=== PATIENT | male | born 1965 | race Caucasian/White ===

== ENCOUNTER → 2018-05-03 11:11 | Outpatient (CLI) | payer BC, SELFPAY ==
[2018-05-03 13:12] LABS: AST(SGOT) 39 U/L (15-37); Alanine Aminotransfer ALT/SGPT 66 U/L (16-61); Albumin, Serum 4.3 g/dL (3.2-5.0); Alkaline Phosphatase 64 U/L (45-117); Bilirubin, Direct 0.13 mg/dL (0.00-0.30); Cholesterol 188 mg/dL (200); Globulin 3.4 g/dL (2.2-4.2); High Density Lipoprotein 44 mg/dL; Protein, Total 7.7 g/dL (6.4-8.2); Triglycerides 252 mg/dL; Very Low Density Lipoprotein 50 mg/dL (5-40)
== END ==
PROVIDERS: Family Provider Family Medicine Geriatric Medicine; PCP Family Medicine Geriatric Medicine; Visit Provider Internal Medicine Cardiovascular Disease
DX: E78.5 Hyperlipidemia, unspecified (principal)
CPT/HCPCS: 36415; 80061; 80076

== ENCOUNTER → 2019-05-14 | Outpatient (CLI) | payer BC, SELFPAY ==
[2019-05-14 09:30] VITALS: BMI 27.9
[2019-05-14 12:22] LABS: AST(SGOT) 27 U/L (15-37); Alanine Aminotransfer ALT/SGPT 52 U/L (16-61); Albumin, Serum 4.4 g/dL (3.2-5.0); Alkaline Phosphatase 72 U/L (45-117); Bilirubin, Direct 0.22 mg/dL (0.00-0.30); Cholesterol 182 mg/dL (200); Globulin 3.5 g/dL (2.2-4.2); High Density Lipoprotein 49 mg/dL; Protein, Total 7.9 g/dL (6.4-8.2); Triglycerides 264 mg/dL; Very Low Density Lipoprotein 53 mg/dL (5-40)
== END | disposition home or self-care (01) ==
LOC: LAB 11:10
PROVIDERS: Family Provider Family Medicine Geriatric Medicine; PCP Family Medicine Geriatric Medicine; Referring Provider Internal Medicine Cardiovascular Disease; Visit Provider Internal Medicine Cardiovascular Disease
DX: E78.5 Hyperlipidemia, unspecified (principal)
CPT/HCPCS: 36415; 80061; 80076

== ENCOUNTER → 2019-06-04 14:23 | Outpatient (CLI) | payer SELFPAY ==
[2019-05-14 09:30] VITALS: BMI 27.9
[2019-05-23 09:48] VITALS: BMI 27.9
--- NOTE | 2019-06-04 14:30 | CT_ITS ---
STUDY: CARDIAC CALCIUM SCORING - CT CHEST REASON FOR EXAM: Male, 54 years old. Hypertension RADIATION DOSAGE (If Supplied By Facility): CTDIvol = ( 12.19 ) mGy, DLP = ( 195.04 ) mGycm TECHNIQUE: Axial non-enhanced images were acquired through the heart for the sole purpose of measuring coronary artery calcium. Individualized dose optimization techniques were used for this CT. COMPARISON: None. FINDINGS: Please see the patient's medical record for a personalized calcium score. There is a calcified granuloma noted in the left lower lobe. The visualized lungs are otherwise clear. The visualized soft tissues are within normal limits. CT/Limited Chest CT w/CCTA IMPRESSION: Please see the patient's medical record for a personalized calcium score. Please go to: [email or web address] , for a description of the calculator. Electronically Signed: Jorden Forbes, at 16:17 EDT Tel , Service support ,
[2019-06-04 14:37] VITALS: BP 144/86; PULSE 66; RESP 16; O2SAT 96; BMI 27.2
--- NOTE | 2019-06-17 09:07 | CA.SCORE ---
Calcium Scoring Date of Study:: 06/17/19 Coronary Calcium Scoring: High-resolution Computed Tomographic imaging of the chest was performed on [06/04/2019], with particular attention paid to the coronary arteries. Images from the examination were analyzed for the presence and extent of coronary artery calcification , using coronary calcium quantification software. The patient tolerated the procedure well and there were no complications. The results of the coronary calcification analysis are provided below. - Findings Left Main (LM): 16 Left Anterior Descending (LAD): 0 Left Circumflex (LCX): 2 Right Coronary Artery (RCA): 0 Total Agatston Score: 18 Percentile Rankin Calcium Scoring Interpretation: 0 No identifiable atherosclerotic plaque. Very low cardiovascular disease risk. <5% chance of presence coronary artery disease A Negative Examination 1-10 Minimal Plaque burden. Significant coronary artery disease very unlikely. 11-100 Mild plaque burden. Likely mild or minimal coronary atherosclerosis. 101-400 Moderate plaque burden Moderate non-obstructive coronary artery disease highly likely. Over 400 Extensive plaque burden. High likelihood of at least one significant coronary stenosis (>50% diameter) Calcium Score: >400 High likelihood of at least one significant coronary stenosis - The above suggests mild coronary artery disease. A full evaluation of cardiac risk should include assessment of all conventional risk factors and the scores and percentile rankings reported herein should be evaluated in this context.
== END ==
PROVIDERS: Family Provider Family Medicine Geriatric Medicine; PCP Family Medicine Geriatric Medicine; Referring Provider Internal Medicine Cardiovascular Disease; Visit Provider Internal Medicine Cardiovascular Disease
DX: I10 Essential (primary) hypertension (principal); E78.5 Hyperlipidemia, unspecified
CPT/HCPCS: 75571; 76380

== ENCOUNTER 2019-06-14 08:49 | Day surgery (SDC) | payer BC, SELFPAY ==
--- NOTE | 2019-05-23 06:11 | HP_ITS ---
Intake Vital Signs 05/23/19 Body Mass Index (BMI) 27.9 05/23/19 Height 5 ft 10 in 05/23/19 Weight: 197 lb 05/23/19 Body Mass Index (BMI) 28.3 05/23/19 Blood Pressure 146/87 H 05/23/19 Blood Pressure Location Rt brachial 05/23/19 Respiratory Rate 18 05/23/19 Pulse Rate 76 05/23/19 Pulse Source Monitor 05/23/19 Temperature 98.3 F 05/23/19 Pulse Ox 98 05/23/19 Oxygen Delivery Method room air Intake Visit Reasons: Umbilical Hernia Chief Complaint: Follow up Commercial Credit Reviewer Required: No Is patient in pain?: No Allergies codeine Adverse Reaction (Intermediate, Verified 05/23/19 09:47) Nausea Medications hydrochlorothiazide 25 mg tablet 25 mg PO QAM #90 tab 05/14/19 [Rx Confirmed 05/23/19] losartan 100 mg tablet 100 mg PO DAILY #90 tab 05/14/19 [Rx Confirmed 05/23/19] rosuvastatin 10 mg tablet 10 mg PO DAILY #90 tab 05/14/19 [Rx Confirmed 05/23/19] PFSH Medical History Essential (primary) hypertension (Chronic) Family history of ischemic heart disease (Chronic) Hyperlipidemia (Chronic) Surgical History History of tonsillectomy (Chronic) History of vasectomy (Chronic) Family History (Updated 05/23/19 @ 09:48 by Lesly Villela) Father CAD (coronary artery disease) S/P CABG x 6 Asthma Hypertension High cholesterol Mother Hypertension CVA (cerebral vascular accident), Onset Age: 69 High cholesterol Brother Hypertension Grandfather , Age 72 CAD (coronary artery disease) Myocardial infarction Social History (Updated 05/23/19 @ 09:45 by Lesly Villela) Smoking Status: Never smoker alcohol intake: current substance use type: does not use HPI HPI HPI: BRYAN BRADLEY, is a 54 M who presents to the office today for HPI HPI Surgical H&P: Yes HPI: BRYAN BRADLEY, is a 54 M who presents to the office today for surgical consultation regarding a slowly progressing umbilical hernia. 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 Very pleasant 54-year-old gentleman. For several years he has noted an umbilical hernia. It usually is quite comfortable. Occasionally with a vigorous sneeze it will be briefly uncomfortable. He has never had to reduce any tissue. He remains physically active. He denies any acute medical illnesses other than hypertension and hyperlipidemia. During our discussion it became apparent that he previously was scheduled to have a screening colonoscopy however due to scheduling problems that had to be canceled and he has not had an opportunity to reschedule. He denies bright red blood per rectum or melena. There is been no acute weight change. ROS General General: No weight change, appetite, fatigue, colon cancer, breast cancer or weakness HEENT HEENT: No difficulty swallowing, eye injury, eye surgery, swollen glands or hoarseness Endo Endocrine: No thyroid disease, diabetes mellitus, thyroid cancer, Hair loss, heat intolerance or cold intolerance Skin Skin: No rash or changing moles Breast Breast: No left breast lump, right breast lump, nipple discharge, breast pain, abnormal mammogram, abnormal US or breast enlargement Musc Musculoskeletal: No back problems, arthritis, rheumatoid arthritis, gout or joint pain Cardio Cardiovascular: Yes high blood pressure; no murmur, pacemaker, heart disease, atrial fibrillation, heart attack, heart stent, palpitations, shortness of breat with exertion or chest pain Psych Psychiatric: No depression, anxiety or hearing voices Resp Respiratory: No shortness of breath, No sleep apnea, No cough, No COPD, No asthma, No emphysema, No wheezing Gastro Gastrointestinal: No abdominal pain, No nausea or vomiting, No diarrhea, No constipation, No blood in stool, No acid reflux, No hemorrhoids, No ulcers, No gallbladder problem, No black,tarry stools Gorge Hematologic: No blood thinners, No blood disorders, No bleeding, No anemia, No blood clots Neuro Neurologic: No system reviewed and no additional complaints, except as docu, No as per HPI, No abnormal walking, No abnormal hearing, No abnormal movements, No abnormal speech, No behavioral changes, No burning sensations, No confusion, No seizure-like activity, No unsteadiness, No dizziness, No localized weakness, No frequent falls, No headache(s), No lack of coordination, No loss of vision, No memory loss, No numbness, No other visual disturbances, No radiating pain, No restless legs, No sensory deficit, No fainting, No tingling, No tremor(s), No weakness, No other Exam Const General: cooperative, healthy appearing, comfortable, no acute distress Nutritional Appearance: average body habitus Orientation: alert, awake, oriented x3 HENMT Head: normal to inspection Chest Breast Palpation: No nipple discharge Resp Effort & Inspection: normal respiratory effort Auscultation: clear to auscultation bilaterally Cardio Rate: regular rate Rhythm: regular rhythm Heart Sounds: no murmurs GI Palpation: soft, no hepatosplenomegaly Auscultation: normal bowel sounds Other: Small umbilical hernia, nontender, reducible, suggest preperitoneal fatty tissue Musc Cervical Spine: normal cervical lordosis Neuro Cognition: normal cognition Extrem General: no calf tenderness bilaterally Psych Affect: normal affect Assessment & Plan Problems 1. Umbilical hernia without obstruction or gangrene K42.9 2. Screening for intestinal cancer Z12.10 Plan On my clinical evaluation I believe that he has a relatively small umbilical hernia. It very infrequently is symptomatic. There is no bowel involvement. Small amount of reducible preperitoneal fatty tissue. I advised a conservative nonoperative approach at this setting. He has had an opportunity to ask and have questions answered. We did discussed screening colonoscopy however. I did advise him to pursue a colonoscopy with possible biopsy or polypectomy as indicated. He has had an opportunity to ask and have questions answered and he would like to proceed. We will schedule appropriately. The patient notes that on an annual basis basis he sees Dr. Harsh Maher regarding lipid and blood pressure management. He states that he is not recently seen by his primary care physician and I did advise that he seek routine follow-up with Dr. Weems as well. I very much appreciate the kind opportunity of assisting with his surgical care. CC: Dr. Maher and Dr. Dank Nguyen M.D., F.A.C.S. Orders Orders: Colonoscopy Today Z12.11 Coding Level of Care Code Off vis,new,level 3 Diagnoses Umbilical hernia without obstruction or gangrene K42.9 Screening for intestinal cancer Z12.10 05/24/19 0628 <Electronically signed by Bryan chaparro MD> Date _ Bryan Nguyen MD I have re-examined the patient. There are no clinical changes since date of exam.
[2019-05-23 09:48] VITALS: BMI 27.9
[2019-06-04 14:37] VITALS: BMI 27.2
[2019-06-14] VITALS (10 sets, daily range): BP systolic 99–175; BP diastolic 83–97; PULSE 80–98; RESP 16; TEMP 36.1–36.8; O2SAT 92–100; BMI 27.3
--- NOTE | 2019-06-14 10:00 | COLBX_PTH ---
PATIENT: BRYAN BRADLEY LOC: EN U#:[id number] AGE/SX: 54/M ROOM: RE06/14/[address]: Dr. Bryan Nguyen MD : 1965 BED: DIS: 06/14/2019 SPEC #: [id number] RECD: 06/14/19 11:28 STATUS: OLEGARIO NEERAJ #: [id number] ROSINA: 06/14/19 10:[address]: Bryan Nguyen DEPT: SURGICAL PATHOLOGY RECD BY: Tenzin Michelle ENTERED: 06/14/19 12:43 SP TYPE: COLON BX OTHR DR: Dr. Gabe Weems MD Tissues: A - Ascending colon B - Ascending colon C - Rectum, NOS Procedures: Surgery Specimen Level IV HEADER OPERATION: Colonoscopy (MOD) PRE-OP DIAGNOSIS: Screening TISSUE SUBMITTED: A - Biopsy of proximal ascending polyp and polypectomy, B - Biopsy of proximal ascending polyp #2, C - Biopsy of proximal rectum polyp MICROSCOPIC DIAGNOSIS A. Proximal ascending colon polyp, polypectomy: Consistent with fragments of inflammatory polyp. B. Proximal ascending colon polyp #2, biopsy: Fragments of tubular adenoma. C. Proximal rectum polyp, biopsy: Fragments of hyperplastic polyp. DEON:suresh 06/17/19 MICROSCOPIC DESCRIPTION Slides are reviewed. GROSS DESCRIPTION A - Received in fixative is one container labeled with the patient's name and designated biopsy of proximal ascending polyp. The specimen consists of multiple irregular fragments of light cook soft tissue that in aggregate measure 0.5 x 0.5 x 0.1 cm. The specimen is totally submitted in one cassette. B - Received in fixative is one container labeled with the patient's name and designated biopsy of proximal ascending polyp #2. The specimen consists of multiple irregular fragments of light cook soft tissue that in aggregate measure 0.5 x 0.4 x 0.1 cm. The specimen is totally submitted in one cassette. C - Received in fixative is one container labeled with the patient's name and designated biopsy of proximal rectum polyp. The specimen consists of multiple irregular fragments of light cook soft tissue that in aggregate measure 0.6 x 0.3 x 0.1 cm. The specimen is totally submitted in one cassette. / DEON:suresh 06/14/19 TC:1 CPT: 92320 x3
--- NOTE | 2019-06-14 10:27 | OP.ENDO_ITS ---
06/14/2019 Harsh Maher [address] [place] [address] Re : Colonoscopy procedure for Jean Carlos Robledo Dear Dr. Maher This procedure was performed on Friday, June 14, 2019. My impressions and recommendations are as follows: Impressions : - Diverticulosis in the sigmoid colon. - One 5 mm polyp in the proximal ascending colon, removed with a cold snare. Resected and retrieved. - One 4 mm polyp in the proximal ascending colon, removed with a cold biopsy forceps. Resected and retrieved. - One 4 mm polyp in the rectum, removed with a cold biopsy forceps. Resected and retrieved. Recommendations : - Repeat colonoscopy in 5 years for surveillance based on pathology results. - Telephone my office for pathology results in 1 week. - Discharge patient to home. - Resume previous diet. - Continue present medications. My findings are described in the full procedure note, which is enclosed. If I can be of further assistance, please feel free to contact me at Doctor phone number(s): Work: . Sincerely, Jean Carlos Nguyen MD 06/14/2019 10:26:55 AM This report has been signed electronically.
== END 2019-06-14 11:25 | disposition home or self-care (01) ==
LOC: EN 08:50 → AC 08:51
PROVIDERS: Family Provider Family Medicine Geriatric Medicine; PCP Family Medicine Geriatric Medicine; Referring Provider Family Medicine Geriatric Medicine; Visit Provider Surgery
PROC: 0DJD8ZZ Inspection of Lower Intestinal Tract, Via Natural or Artificial Opening Endoscopic (ICD-10-PCS; CPT 45378; principal; 2019-06-14 09:55)
DX: Z12.11 Encounter for screening for malignant neoplasm of colon (principal); D12.2 Benign neoplasm of ascending colon; K51.40 Inflammatory polyps of colon without complications; K62.1 Rectal polyp; K57.30 Diverticulosis of large intestine without perforation or abscess without bleeding; K42.9 Umbilical hernia without obstruction or gangrene; I10 Essential (primary) hypertension; E78.5 Hyperlipidemia, unspecified; Z79.899 Other long term (current) drug therapy
CPT/HCPCS: 45380; 45385; 88305; 99152; 99153; J7120

== ENCOUNTER 2022-01-25 07:41 | Outpatient (CLI) | payer BC, SELFPAY ==
--- NOTE | 2022-01-25 07:51 | US_ITS ---
EXAM: US SOFT TISSUES HEAD AND NECK, THYROID CLINICAL INDICATION: THYROID NODULE TECHNIQUE: Greyscale and color doppler imaging was performed of the thyroid gland. This report was created using [employer] report generation technology. COMPARISON: None. FINDINGS: The right thyroid lobe measures 5.4 x 2.4 x 1.6 cm while left lower lobe measures 4.8 x 1.7 x 1.5 cm. The isthmus measures 3 mm. No nodules are seen on the left side. On the right side, there is a 3 mm nodule which is cystic and likely benign. US/Thyroid IMPRESSION: Likely benign 3 mm cystic nodule involving the right thyroid lobe. No other significant abnormalities. Electronically Signed: Ernesto Alvarez MD at 16:52 EDT ,
== END 2022-01-25 23:59 | disposition home or self-care (01) ==
LOC: US 07:47
PROVIDERS: PCP Internal Medicine; Referring Provider Internal Medicine; Visit Provider Internal Medicine
DX: E04.1 Nontoxic single thyroid nodule (principal)
CPT/HCPCS: 76536

== ENCOUNTER → 2022-03-25 | Outpatient (CLI) | payer BC, SELFPAY ==
--- NOTE | 2022-03-25 08:53 | RDU_ITS ---
Reason For Study: HTN Right Renal Artery Left Renal Artery Right renal artery ostium 72.9/27.2 Left renal artery ostium 87.5/21.7 RSV/EDV. PSV/EDV. Right renal artery proximal Left renal artery proximal PSV/EDV 105.7/25.4 PSV/EDV. 131.3/40.0 . Right renal artery mid 135/40.0 Left renal artery mid 155.6/48.1 PSV/EDV. PSV/EDV . Right renal artery distal 96.3/32.7 Left renal artery distal 118.9/33.4 PSV/EDV. PSV/EDV. Right Renal Parenchyma Left Renal Parenchyma Upper Pole Medula 36.1/10.9 Left upper pole medulla 53.0/19.3 PSV/EDV. PSV/EDV . Right upper pole medulla EDR .3 . Left upper pole medulla EDR .36 . Right upper pole medulla R.I. .7 . Left upper pole medulla R.I. .64 . Upper Reji Cortx 31.7/13.1 PSV/EDV. UP Cortex 24.5/8.9 PSV/EDV. Right upper pole cortex EDR .41 . Left upper pole cortex EDR .37 . Right upper pole cortex R.I. .59 . Left upper pole cortex R.I. .63 . Right lower Pole medulla 39.4/17.4 Left lower Pole medulla 27.1/8.9 PSV/EDV . PSV/EDV . Right lower pole medulla EDR .44 . Left lower pole medulla EDR .33 . Right lower pole medulla R.I. .56 . Left lower pole medulla R.I. .67 . Lower Pole Cortex 19.6/7.6 PSV/EDV. Lower Pole Cortx 31.0/10.2 PSV/EDV. Right lower pole cortex EDR .39 . Left lower pole cortex EDR .33 . Right lower pole cortex R.I. .61 . Left lower pole cortex R.I. .67 . Right Renal Hilar Left Renal Hilar Right Hilar avg 58.0/21.8 PSV/EDV. LT Hilar avg 43.9/15.4 PSV/EDV . Right hilar acceleration time 50 Left hilar acceleration time 50 m/sec. m/sec. Right Renal Dimensions Left Renal Dimensions Right kidney size 11.67 cm . Left kidney size 11.6 cm . Right cortical dimension 1.85 cm . Left cortical dimension 1.7 cm . Aorta Proximal abdominal aorta 1.42 x 1.45 cm . Proximal abdominal aorta peak systolic velocity is 106.3 cm/sec . Distal abdominal aorta 1.4 x 1.36 cm . Distal abdominal aorta peak systolic velocity is 97.2 cm/sec . Normal renal veins bilat. VL/Renal Artery Duplex Ultrasound Interpretation Summary Dimensions of the intra-abdominal aorta appear normal, without evidence of aneu rysmal dilatation. Renal artery velocities are bilaterally normal. Acceleration times are normal b ilaterally. There is no evidence of hemodynamically significant renal artery stenosis on either side . Renovascular resistance appears to be bilaterally normal . The right cortical dimension is i ncreased. The left cortical dimension is increased. Kidneys appear normal in size bilaterally. Ordering Physician: Carolin Feldman Performed By: Giuseppe Rojas RVT
== END | disposition home or self-care (01) ==
LOC: CVS 08:52
PROVIDERS: PCP Internal Medicine; Referring Provider Internal Medicine; Visit Provider Internal Medicine
DX: I10 Essential (primary) hypertension (principal); E04.1 Nontoxic single thyroid nodule
CPT/HCPCS: 93975

== ENCOUNTER → 2022-09-19 | Outpatient (CLI) | payer BC, SELFPAY ==
--- NOTE | 2022-09-19 12:48 | ECHOD_ITS ---
Procedure This was a 2D Doppler, Color Flow transthoracic echocardiogram. Exam performed in department. Left Ventricle Normal LV size. Left ventricular systolic function is normal. The estimated ejection fraction is 60 %. No regional wall motion abnormalities noted. Right Ventricle Normal RV size. Normal systolic function. Atria Normal left atrium. Normal right atrium. Mitral Valve Normal mitral valve. Tricuspid Valve Normal tricuspid valve. Aortic Valve Trisinus/trileaflet aortic valve. Pulmonic Valve Normal pulmonic valve. Great Vessels Normal aortic root. The pulmonary artery is normal size. Normal inferior vena cava. Pericardium/Pleural No pericardial effusion. MMode/2D Measurements & Calculations LVIDd: 4.7 cm IVSd: 0.91 cm Ao root diam: 3.2 cm LVIDs: 3.2 cm LVPWd: 1.0 cm LA dimension: 3.8 cm RVDd: 3.6 cm FS: 31.1 % LAV(MOD-bp): 48.3 ml LVAd ap4: 33.5 cm2 LVAd ap2: 30.8 cm2 LAV(MOD-bp) Indexed: 23.7 ml/m2 LVLd ap4: 9.1 cm LVLd ap2: 8.8 cm LAV(MOD-sp2): 44.2 ml EDV(MOD-sp4): 103.3 ml EDV(MOD-sp2): 89.4 ml LAV(MOD-sp4): 45.5 ml EDV(sp4-el): 105.1 ml EDV(sp2-el): 92.0 ml LVAs ap4: 16.4 cm2 LVAs ap2: 17.7 cm2 LVLs ap4: 7.5 cm LVLs ap2: 7.5 cm ESV(MOD-sp4): 31.0 ml ESV(MOD-sp2): 38.1 ml ESV(sp4-el): 30.5 ml ESV(sp2-el): 35.3 ml EF(MOD-sp4): 70.0 % EF(MOD-sp2): 57.4 % EF(sp4-el): 71.0 % SV(MOD-sp4): 72.3 ml SV(MOD-sp2): 51.3 ml SV(sp4-el): 74.6 ml LA A4 area: 15.6 cm2 RA A4 area: 12.5 cm2 Time Measurements MV dec time: 0.20 sec Doppler Measurements & Calculations MV E max brenden: 50.8 cm/sec Lat Peak E' Brenden: 10.5 cm/sec Med Peak E' Brenden: 8.5 cm/sec MV A max brenden: 58.2 cm/sec E/E' lat: 4.8 E/E' med: 5.9 MV E/A: 0.87 Ao V2 max: 127.4 cm/sec LV V1 max: 97.3 cm/sec PA V2 max: 134.9 cm/sec Ao max P.5 mmHg LV V1 max P.8 mmHg Ao V2 mean: 89.6 cm/sec LV V1 mean P.7 mmHg Ao mean P.5 mmHg LV V1 mean: 61.3 cm/sec Ao V2 VTI: 23.8 cm LV V1 VTI: 16.7 cm ECHO/Echo Complete Interpretation Summary Normal LV size. Left ventricular systolic function is normal. The estimated ejection fraction is 60 %. Structurally normal valves. Ordering Physician: Harsh Maher Referring Physician: Harsh Maher Performed By:
== END | disposition home or self-care (01) ==
LOC: CVS 12:48
PROVIDERS: PCP Internal Medicine; Referring Provider Internal Medicine Cardiovascular Disease; Visit Provider Internal Medicine Cardiovascular Disease
DX: I10 Essential (primary) hypertension (principal)
CPT/HCPCS: 93306

== ENCOUNTER → 2023-06-14 | Outpatient (CLI) | payer BC, SELFPAY ==
--- NOTE | 2023-06-14 16:42 | US_ITS ---
STUDY: RENAL ULTRASOUND - COMPLETE REASON FOR EXAM: Male, 58 years old. MICROSCOPIC HEMATURIA TECHNIQUE: Ultrasound evaluation of the kidneys was performed with real-time and static shetty-scale imaging. COMPARISON: None. FINDINGS: RIGHT KIDNEY: Normal location of the right kidney, which is normal in size. The right kidney measures 12.4 cm x 4.8 cm x 6 cm. There is a normal cortex of the right kidney. The renal cortex measures 1.8 cm. There is no right renal mass or cyst. There are no right renal calculi. There is no right hydronephrosis. DISTAL RIGHT URETER: There is non-visualization of the distal right ureter. There is no demonstrated right ureterovesical junction calculus. There is a visualized right ureteral jet. LEFT KIDNEY: Normal location of the left kidney, which is normal in size. The left kidney measures 11.7 cm x 5.6 cm x 6.4 cm. There is a normal cortex of the left kidney. The renal cortex measures 2.1 cm. There is no left renal mass or cyst. There are no left renal calculi. There is no left hydronephrosis. DISTAL LEFT URETER: There is non-visualization of the distal left ureter. There is no demonstrated left ureterovesical junction calculus. There is a visualized left ureteral jet. BLADDER: The distended urinary bladder has a volume of 266 ml. The empty urinary bladder has a volume of 5.8 ml. There is a normal wall thickness of the distended urinary bladder. There is no demonstrated mass within the urinary bladder. There are no demonstrated bladder calculi. US/Kidney and Bladder IMPRESSION: Normal ultrasound of the kidneys and urinary bladder. Electronically Signed: Homer Russo MD at 11:03 EDT ,
== END | disposition home or self-care (01) ==
LOC: US 16:40
PROVIDERS: PCP Internal Medicine; Referring Provider Internal Medicine; Visit Provider Internal Medicine
DX: R31.29 Other microscopic hematuria (principal)
CPT/HCPCS: 76770

== ENCOUNTER → 2023-07-13 | Outpatient (CLI) | payer BC, SELFPAY | END | disposition home or self-care (01) | PROVIDERS: PCP Internal Medicine; Referring Provider Internal Medicine; Visit Provider Internal Medicine | DX: R06.81 Apnea, not elsewhere classified (principal); I10 Essential (primary) hypertension; R06.83 Snoring | CPT/HCPCS: 95810 ==

== ENCOUNTER → 2023-08-30 | Outpatient (CLI) | payer BC, SELFPAY ==
[2023-08-30] MEDS: Zolpidem Tartrate 5 MG Tablet PO (23:53)
== END | disposition home or self-care (01) ==
LOC: SL 20:23
PROVIDERS: PCP Internal Medicine; Referring Provider Nurse Practitioner Acute Care; Visit Provider Nurse Practitioner Acute Care
DX: G47.33 Obstructive sleep apnea (adult) (pediatric) (principal)
CPT/HCPCS: 95811

== ENCOUNTER → 2023-10-09 | Outpatient (CLI) | payer BC, SELFPAY | END | disposition home or self-care (01) | LOC: SL 13:29 | PROVIDERS: PCP Internal Medicine; Visit Provider Nurse Practitioner Acute Care | DX: R69 Illness, unspecified (principal) ==

== ENCOUNTER → 2023-10-13 | Outpatient (CLI) | payer BC, SELFPAY ==
--- NOTE | 2023-10-13 12:24 | US_ITS ---
STUDY: THYROID ULTRASOUND REASON FOR EXAM: Male, 58 years old. thyroid nodule TECHNIQUE: Ultrasound evaluation of the thyroid was performed with real-time and static adams-scale imaging. COMPARISON: January 25, 2022 FINDINGS: RIGHT LOBE: The right lobe of the thyroid gland measures 5 x 1.9 x 1.7 cm. There is a homogeneous echotexture. There is no demonstrable solid cystic or complex nodule. LEFT LOBE: The left lobe of the thyroid gland measures 4.2 x 1.6 x 1.4 cm. There is a homogeneous echotexture. There are no demonstrated solid, cystic or complex lesions. ISTHMUS: The isthmus measures 3 mm . The regional lymph nodes are normal. Previously noted tiny cystic lesion in the right lobe not noted on current study US/Thyroid IMPRESSION: Nonvisualization of previously noted tiny cystic nodule in the right lower. Otherwise no significant change Electronically Signed: Jules Shukla MD at 16:53 EST ,
== END | disposition home or self-care (01) ==
LOC: US 12:24
PROVIDERS: PCP Internal Medicine; Referring Provider Internal Medicine; Visit Provider Internal Medicine
DX: E04.1 Nontoxic single thyroid nodule (principal)
CPT/HCPCS: 76536

== ENCOUNTER → 2023-11-14 | Outpatient (CLI) | payer BC, SELFPAY ==
--- OUTSIDE RECORDS SUMMARY | 2023-11-14 12:19 | XMS RPT_ITS | CCD ---
Author Name Unknown Address [address] [place] [address] Organization [facility] Care Team Providers Care Lunch Wagon Operator Name Role Phone Fast DO, Carolin A Unavailable Kyra Blanco CMA Unavailable Unavailable Fast DO, Carolin Shirley Unavailable Anibal Núñez LPN Unavailable Unavailable Unavailable Unavailable Fast Carolin BAHENA Attending Unavailable Fast Carolin BAHENA Referring Unavailable Carolin Feldman DO Consulting Unavailable Dr. Carolin Feldman Attending Unavailable FastDr. Carolin Primary Care Unavailable Allergies Allergy Classification Reported Allergen(s) Allergy Type Date of Onset Reaction(s) Facility (12 sources) Codeine/Codeine Derivatives; Translations: [Codeine/Codein e Derivatives] Allergy to substance (finding) [facility] Work Phone: Medications Completed/Discontinued Medications Medication Drug Class(es) Dates Sig (Normalized) Sig (Original) amLODIPine 5 mg oral tablet (12 sources) Dihydropyridine Calcium Channel Kenneth Start: 01-18-2022 End: 07-22-2022 take 1 tablet by mouth once daily amLODIPine Besylate 5 MG Oral Tablet 1 (one) Tablet qd for 0 days Quantity: 30 {Tablet} Refills: 4 Ordered: 22-Jul-2022 Kyra Blanco CMA Start : 18-Jan-2022 End : 22-Jul-2022 Inactive Problems Active Problems Problem Classification Problem Date Documented Da te Episodic/Chronic Abdominal hernia (20 sources) Umbilical hernia; Translations: [Umbilical hernia] 01-18-2022 Episodic Past or Other Problems Problem Classification Problem Date Documented Da te Episodic/Chronic Unclassified (4 sources) BMI 26.0-26.9,adult Unclassified (4 sources) Nonsmoker Unclassified (3 sources) Encounter for screening for malignant neoplasm of prostate (Renamed from Screening for prostate cancer) Unclassified (3 sources) Immunity status testing Unclassified (1 source) Colon polyps Unclassified (1 source) History of histoplasmosis Results Test Name Value Interpretation Reference Range Facil ity Vital Signs Date Time Vital Sign Value Performing Clinician Facility 06-23-2023 10:25-0400 Body height 178.44 cm Kyra Mont[facility]ISSIMO [facility] Comprehensiv e [facility]; [facility] Work Phone: 06-23-2023 10:25-0400 Body mass index (BMI) [Ratio] 26.85 kg/m2 [facility]licious [facility]; [facility] Work Phone: 06-23-2023 10:25-0400 Body surface area Derived from formula 2.04 m2 Kyra EdwardselianeORDISSIMO [facility]; [facility] Work Phone: 06-23-2023 10:25-0400 Body temperature 97.1 [degF] Kyra [email or web address] [facility] Comprehensi ve Internal Medicine; [facility] Work Phone: Encounters Encounter Date Encounter Type Care Provider Facility Start: 06-23-2023 End: 06-23-2023 Office outpatient visit 10 minutes Carolin Fast DO Work Phone: [facility] Start: 06-12-[address] Carolin Nolandi [id number] Start: 06-07-2023 End: 06-09-2023 Patient encounter procedure Carolin Fast DO Work Phone: [facility] Start: 06-07-2023 Review Carolin Fast DO Work Phone: [facility] Start: 05-24-2023 Review Carolin Fast DO Work Phone: [facility] Start: 05-24-2023 End: 06-14-2023 Phone Encounter Carolin Fast DO Work Phone: [facility] Start: 05-12-2023 End: 05-12-2023 Phone Encounter Carolin Fast DO Work Phone: [facility] Start: 07-22-2022 ambulatory Carolin A Fast DO Compreh ensive [facility] Start: 07-22-2022 End: 07-27-2022 Office outpatient visit 25 minutes Carolin Fast DO Work Phone: [facility] Start: 07-12-2022 End: 07-20-2022 Phone Encounter Carolin Fast DO Work Phone: [facility] Start: 05-11-2022 End: 07-11-2022 Office outpatient visit 5 minutes Carolin Fast DO Work Phone: [facility] Start: 01-19-2022 End: 01-19-2022 Phone Encounter Carolin Fast DO Work Phone: [facility] Start: 01-18-2022 End: 01-18-2022 Office outpatient visit 25 minutes Carolin Fast DO Work Phone: [facility] Start: 09-27-2021 End: 09-28-2021 Office outpatient visit 25 minutes Carolin Fast DO Work Phone: [facility] Start: 09-27-2021 End: 09-28-2021 Patient encounter status Carolin A Fast DO Work Phone: [facility]; [facility] Work Phone: [facility] Work Phone: Patient encounter status [facility]; [facility] Work Phone: Patient encounter status [facility]; [facility] Work Phone: Patient encounter status [facility]; [facility] Work Phone: Procedures Date Procedure Procedure Detail Performing Clinician Start: 06-14-2023 End: 06-15-2023 Kidney and Bladder Procedure Note: See Note; NOTES: [facility] Imaging Services [address] [place] [address] Kidney and Bladder MR#: [id number] Acct: [id number] Name: BRYAN BRADLEY Rep #: [id number] : 1965 M 58 From: Homer vyas MD PCP: Dr. Carolin Feldman DO Status: REG CLI Study: Kidney and Bladder Date of Exam: 06/14/23 Exam# [id number] Ordering Dr: Carolin Feldman DO STUDY: RENAL ULTRASOUND - COMPLETE REASON FOR EXAM: Male, 58 years old. MICROSCOPIC HEMATURIA TECHNIQUE: Ultrasound evaluation of the kidneys was performed with real-time and static shetty-scale imaging. COMPARISON: None. FINDINGS: RIGHT KIDNEY: Normal location of the right kidney, which is normal in size. The right kidney measures 12.4 cm x 4.8 cm x 6 cm. There is a normal cortex of the right kidney. The renal cortex measures 1.8 cm. There is no right renal mass or cyst. There are no right renal calculi. There is no right hydronephrosis. DISTAL RIGHT URETER: There is non-visualization of the distal right ureter. There is no demonstrated right ureterovesical junction calculus. There is a visualized right ureteral jet. LEFT KIDNEY: Normal location of the left kidney, which is normal in size. The left kidney measures 11.7 cm x 5.6 cm x 6.4 cm. There is a normal cortex of the left kidney. The renal cortex measures 2.1 cm. There is no left renal mass or cyst. There are no left renal calculi. There is no left hydronephrosis. DISTAL LEFT URETER: There is non-visualization of the distal left ureter. There is no demonstrated left ureterovesical junction calculus. There is a visualized left ureteral jet. BLADDER: The distended urinary bladder has a volume of 266 ml. The empty urinary bladder has a volume of 5.8 ml. There is a normal wall thickness of the distended urinary bladder. There is no demonstrated mass within the urinary bladder. There are no demonstrated bladder calculi. US/Kidney and Bladder IMPRESSION: Normal ultrasound of the kidneys and urinary bladder. Electronically Signed: Homer Russo MD at 11:03 EDT , CC: Dr. Carolin Feldman DO Cage Tender: Signed Carolin Feldman DO Work Phone: Start: 12-22-2022 End: 12-22-2022 Office Visit Report Procedure Note: See Note; NOTES: [facility] Services [address] [place] [address] OFFICE VISIT Date of Service: 12/22/22 MR#: [id number] Acct: [id number] Patient: BRYAN BRADLEY Rep #: [id number] : 1965 Provider: Dr. Harsh Maher MD Age/Sex: 57/M [place] [facility] [place]: Signed Intake Vital Signs 12/22/22 14:19 12/22/22 14:19 BP 150/64 H 130/80 H Blood Pressure Location Lt brachial Lt brachial Position Sitting Sitting Respiration 20 H 20 H Pulse 88 80 Pulse Source Auscultation Auscultation Intake Visit Reasons: High BP, h/a, trip on Monday L.L. Chief Complaint: elevated BP Social Insurance Administrator Required: No Is patient in pain?: No Allergies codeine Adverse Reaction (Intermediate, Verified 09/06/21 15:29) Nausea Nurse's Note: Pt is concerned because his BP at home has been elevated, and he feels funny in his head, not headache so much as a numb feeling. He and are flying out of town tomorrow and he was concerned about going with high BP. BP #1 after sitting 5 minutes: 150/64, HR 88. BP #2 after sitting a few more minutes: 130/80, HR 80. Both were L arm sitting. Nicki Pollack TEMPERING KILN TENDER notified and asked pt to resume Amlodipine 2.5 but take it BID with current meds. He is to monitor BP. He is to call back when he returns from trip and have 24 hour ambulatory BP monitor applied. 12/22/22 1448 <Electronically signed by Harsh Maher MD> Date Harsh Maher MD Cosign Signature: Date (if applicable) CC: TOBY Pollack; Arianna Garciaa Fast DO Work Phone: Start: 09-19-2022 End: 09-19-2022 Echo Complete Procedure Note: See Note; NOTES: [facility] Cardi[facility] Services [address] [place] [address] Echo Complete 09/19/22 1414 MR#: [id number] Acct: [id number] Name: BRYAN BRADLEY Rep #: [id number] : 1965 57 From: Harsh Maher MD Attending Dr: Dr. Harsh Maher MD Status: [facility] Andreas Ordering Dr: Harsh Maher MD Date: 09/19/22 Location: [facility] Sex: M C Admitted: Procedure This was a 2D Doppler, Color Flow transthoracic echocardiogram. Exam performed in department. Left Ventricle Normal LV size. Left ventricular systolic function is normal. The estimated ejection fraction is 60 %. No regional wall motion abnormalities noted. Right Ventricle Normal RV size. Normal systolic function. Atria Normal left atrium. Normal right atrium. Mitral Valve Normal mitral valve. Tricuspid Valve Normal tricuspid valve. Aortic Valve Trisinus/trileaflet aortic valve. Pulmonic Valve Normal pulmonic valve. Great Vessels Normal aortic root. The pulmonary artery is normal size. Normal inferior vena cava. Pericardium/Pleural No pericardial effusion. MMode/2D Measurements Calculations LVIDd: 4.7 cm IVSd: 0.91 cm Ao root diam: 3.2 cm LVIDs: 3.2 cm LVPWd: 1.0 cm LA dimension: 3.8 cm RVDd: 3.6 cm FS: 31.1 % LAV(MOD-bp): 48.3 ml LVAd ap4: 33.5 cm2 LVAd ap2: 30.8 cm2 LAV(MOD-bp) Indexed: 23.7 ml/m2 LVLd ap4: 9.1 cm LVLd ap2: 8.8 cm LAV(MOD-sp2): 44.2 ml EDV(MOD-sp4): 103.3 ml EDV(MOD-sp2): 89.4 ml LAV(MOD-sp4): 45.5 ml EDV(sp4-el): 105.1 ml EDV(sp2-el): 92.0 ml LVAs ap4: 16.4 cm2 LVAs ap2: 17.7 cm2 LVLs ap4: 7.5 cm LVLs ap2: 7.5 cm ESV(MOD-sp4): 31.0 ml ESV(MOD-sp2): 38.1 ml ESV(sp4-el): 30.5 ml ESV(sp2-el): 35.3 ml EF(MOD-sp4): 70.0 % EF(MOD-sp2): 57.4 % EF(sp4-el): 71.0 % SV(MOD-sp4): 72.3 ml SV(MOD-sp2): 51.3 ml SV(sp4-el): 74.6 ml LA A4 area: 15.6 cm2 RA A4 area: 12.5 cm2 Time Measurements MV dec time: 0.20 sec Doppler Measurements Calculations MV E max brenden: 50.8 cm/sec Lat Peak E' Brenden: 10.5 cm/sec Med Peak E' Brenden: 8.5 cm/sec MV A max brenden: 58.2 cm/sec E/E' lat: 4.8 E/E' med: 5.9 MV E/A: 0.87 Ao V2 max: 127.4 cm/sec LV V1 max: 97.3 cm/sec PA V2 max: 134.9 cm/sec Ao max P.5 mmHg LV V1 max P.8 mmHg Ao V2 mean: 89.6 cm/sec LV V1 mean P.7 mmHg Ao mean P.5 mmHg LV V1 mean: 61.3 cm/sec Ao V2 VTI: 23.8 cm LV V1 VTI: 16.7 cm ECHO/Echo Complete Interpretation Summary Normal LV size. Left ventricular systolic function is normal. The estimated ejection fraction is 60 %. Structurally normal valves. Ordering Physician: Harsh Maher Referring Physician: Harsh Maher Performed By: 09/19/22 1542 Date Harsh Maher MD CC: Dr. Harsh Maher MD; Dr. Carolin Feldman DO Date Dictated: 09/19/22 1414 Date Transcribed: 09/19/22 1542 Cage Tender: Signed Carolin Feldman DO Work Phone: Start: 09-05-2022 End: 09-05-2022 Cardiology Visit Report Procedure Note: See Note; NOTES: [facility] [address] [place] [address] OFFICE VISIT Date of Service: 09/05/22 MR#: [id number] Acct: [id number] Name: BRYAN BRADLEY Rep #: [id number] : 1965 Provider: Dr. Harsh Maher MD Age/Sex: 57/M [place] [facility] Status: Signed HPI HPI History of Present Illness Details: BRYAN BRADLEY, is a 57 M who presents to the office today for follow-up visit for hypertension. He says that he has been doing fairly well he however stopped taking the amlodipine. His blood pressure here is noted to be elevated though he says that at home its been somewhat controlled. He remember he had a blood flow screen in December 2021 demonstrating normal carotids normal ankle- brachial index and normal abdominal aorta. He tells me that his lipid profile was satisfactory but his statins were doubled. He denies chest, arm, jaw, or neck discomfort. He denies symptoms of shortness of breath with exertion, shortness of breath at rest, orthopnea, PND, sudden weight gain, or bilateral lower extremity edema. He denies chronic cough. He denies palpitations, lightheadedness, dizziness, near syncope, or syncopal episodes. He denies claudication issues. He denies fever or chills. He denies blood in urine, blood in stool, or epistaxis. He denies myalgia. He denies unexplainable fatigue. His exercise tolerance is stable. Intake Vital Signs 09/06/21 15:29 09/05/22 16:05 Height 5 ft 10 in 5 ft 10 in Weight: 190 lb BMI 27.2 BP 179/102 H 158/96 H Respiration 16 Pulse 72 Pulse Oximetry (%) 100 Intake Visit Reasons: 1 Y FU Allergies codeine Adverse Reaction (Intermediate, Verified 09/06/21 15:29) Nausea Medications losartan 100 mg tablet 100 mg PO DAILY #90 tabs 05/16/22 [Rx Confirmed 09/05/22] hydrochlorothiazide 25 mg tablet 25 mg PO QAM #90 tabs 05/23/22 [Rx Confirmed 09/05/22] rosuvastatin 20 mg tablet 20 mg PO DAILY 09/05/22 [History Confirmed 09/05/22] PFSH Medical History Essential (primary) hypertension Family history of ischemic heart disease Hyperlipidemia Screening for intestinal cancer Umbilical hernia without obstruction or gangrene Surgical History History of tonsillectomy History of vasectomy Family History Father CAD (coronary artery disease) S/P CABG x 6 Asthma Hypertension High cholesterol Mother Hypertension CVA (cerebral vascular accident), Onset Age: 69 High cholesterol Brother Hypertension Grandfather , Age 72 CAD (coronary artery disease) Myocardial infarction Social History Smoking Status: Never smoker alcohol intake: current substance use type: does not use ROS Const Const: Negative for fatigue, weakness, headache(s), frequent falls, difficulty sleeping or excessive sweating Eyes Eyes: Negative for loss of peripheral vision, transient loss of vision, blurry vision, double vision or tunnel vision ENT ENT: Negative for headache(s), dizziness, Nosebleed/epistaxis or balance problems Cardio Chest Pain: No Palpitations: No Edema: None Muscle aches with walking: None Resp Respiratory: Negative for SOB with activity, SOB at rest, SOB orthopnea SOB lying down, Cough or paroxysmal nocturnal dyspnea GI GI: Negative nausea, vomiting, heartburn or black,tarry stools : Negative for hematuria Musc Musc: Negative for muscle aches/ myalgia, muscle weakness, joint pain or balance problems Skin Skin: Negative non-healing lesions, rash or unusual bruising Neuro Neuro: Negative for dizziness, lightheadedness, near syncope, syncope, orthostatic symptoms, frequent falls, headache(s), weakness, confusion, memory loss, blurry vision, double vision, vertigo or lack of coordination Gorge Hematologic/Lymphatic: Negative for easy bleeding or easy bruising Endo Endo: Negative for fatigue, excessive sweating, flushing or increased thirst/drinking Psych Psych: Negative for anxiety or depression Allergy Allergy/Immunology: Negative for hives and Negative for rash Cardiology Exam Const Appearance: cooperative, healthy appearing, comfortable and no acute distress Nutritional Appearance: average body habitus and well nourished Orientation: alert, awake and oriented x3 Head Head: normal to inspection Ears: hearing grossly normal bilaterally Nose: external nose normal Face and Sinus: face symmetric Mouth: oral mucosae normal Eyes General: appearance normal, both eyes and all related structures Eyelids: eyelids normal EOM: EOM intact bilaterally Neck Neck: normal visual inspection and no JVD Carotids: normal carotid upstroke Chest Chest inspection: normal inspection of the chest, symmetric chest movement and normal respiratory effort; Negative cough Auscultation: Bilateral: Clear to Auscultation Cardio Rate: regular rate Rhythm: regular rhythm Heart sounds: S1 normal and S2 normal; Negative rub, gallop or murmur GI GI: normal to inspection Neuro General: patient alert, patient awake, patient oriented x3 and CN's II-XI intact bilaterally Skin Skin: no rashes or lesions noted Extremities Pulses: Normal: Right Posterior Tibial Pulse, Left Posterior Tibial Pulse, Right Radial Pulse and Left Radial Pulse Lower Extremity Edema: None: Bilateral Psych Psychological: normal affect Supplemental Info Supplemental Information Calcium Scoring Date of Study: 06/17/19 High-resolution Computed Tomographic imaging of the chest was performed on [06/04/2019], with particular attention paid to the coronary arteries. Images from the examination were analyzed for the presence and extent of coronary artery calcification , using coronary calcium quantification software. The patient tolerated the procedure well and there were no complications. The results of the coronary calcification analysis are provided below. Findings Left Main (LM):???16 Left Anterior Descending (LAD):???0 Left Circumflex (LCX):???2 Right Coronary Artery (RCA):???0 Total Agatston Score:???18 Percentile Ranking:???25 Calcium Scoring Interpretation: 11-100??? Mild plaque burden. ? Likely mild or minimal coronary atherosclerosis. Labs: LDL Cholesterol 80 mg/dL (0-130) HDL Cholesterol 49 mg/dL (40-) Triglycerides 264 mg/dL (-199) H VLDL Cholesterol 53 mg/dL (5-40) H Diagnostics: Coronary Angiography CT Pulmonary: No Data to Display Assessment and Plan Assessment and Plan (1) Essential (primary) hypertension: Status: Chronic Plan: His blood pressure does not appear to be very well controlled I would recommend that we obtain an ambulatory blood pressure monitoring as well as an echocardiogram to assess his ventricular function. Depending on the findings further recommendations will then be made. In the meantime he should remain on the losartan as well as the hydrochlorothiazide. Thank you for allowing me to participate in the care of your patient. Please don't hesitate to call if any issues arise. Orders: Orders AMB Blood Pressure Monitor Today I10 - Essential (primary) hypertension Echo Complete Today I10 - Essential (primary) hypertension Plan Details Follow Up: 1 Year (perinatal social worker) Coding Level of Care Code Off vis,est,level 4 Diagnoses Essential (primary) hypertension I10 Coding Level of Care Code Off vis,est,level 4 Diagnoses Essential (primary) hypertension I10 09/05/22 1632 <Electronically signed by Harsh Maher MD> Date Harsh Maher MD Cosigner Signature: Date (if applicable) CC: DO Carolin Colon DO Work Phone: Start: 03-25-2022 End: 03-26-2022 Renal Artery Duplex Ultrasound Procedure Note: See Note; NOTES: [facility] [address] [place] [address] Renal Artery Duplex Ultrasound 03/25/22 0901 MR#: [id number] Acct: [id number] Name: BRYAN BRADLEY Rep #: [id number] : 1965 57 From: Frankie Burgess MD Attending Dr: Dr. Carolin Feldman DO Status: REG CL I Ordering Dr: Carolin Feldman DO Date: 03/25/22 Location: [facility] Sex: M C Admitted: Reason For Study: HTN Right Renal Artery Left Renal Artery Right renal artery ostium 72.9/27.2 Left renal artery ostium 87.5/21.7 RSV/EDV. PSV/EDV. Right renal artery proximal Left renal artery proximal PSV/EDV 105.7/25.4 PSV/EDV. 131.3/40.0 . Right renal artery mid 135/40.0 Left renal artery mid 155.6/48.1 PSV/EDV. PSV/EDV . Right renal artery distal 96.3/32.7 Left renal artery distal 118.9/33.4 PSV/EDV. PSV/EDV. Right Renal Parenchyma Left Renal Parenchyma Upper Pole Medula 36.1/10.9 Left upper pole medulla 53.0/19.3 PSV/EDV. PSV/EDV . Right upper pole medulla EDR .3 . Left upper pole medulla EDR .36 . Right upper pole medulla R.I. .7 . Left upper pole medulla R.I. .64 . Upper Reji Cortx 31.7/13.1 PSV/EDV. UP Cortex 24.5/8.9 PSV/EDV. Right upper pole cortex EDR .41 . Left upper pole cortex EDR .37 . Right upper pole cortex R.I. .59 . Left upper pole cortex R.I. .63 . Right lower Pole medulla 39.4/17.4 Left lower Pole medulla 27.1/8.9 PSV/EDV . PSV/EDV . Right lower pole medulla EDR .44 . Left lower pole medulla EDR .33 . Right lower pole medulla R.I. .56 . Left lower pole medulla R.I. .67 . Lower Pole Cortex 19.6/7.6 PSV/EDV. Lower Pole Cortx 31.0/10.2 PSV/EDV. Right lower pole cortex EDR .39 . Left lower pole cortex EDR .33 . Right lower pole cortex R.I. .61 . Left lower pole cortex R.I. .67 . Right Renal Hilar Left Renal Hilar Right Hilar avg 58.0/21.8 PSV/EDV. LT Hilar avg 43.9/15.4 PSV/EDV . Right hilar acceleration time 50 Left hilar acceleration time 50 m/sec. m/sec. Right Renal Dimensions Left Renal Dimensions Right kidney size 11.67 cm . Left kidney size 11.6 cm . Right cortical dimension 1.85 cm . Left cortical dimension 1.7 cm . Aorta Proximal abdominal aorta 1.42 x 1.45 cm . Proximal abdominal aorta peak systolic velocity is 106.3 cm/sec . Distal abdominal aorta 1.4 x 1.36 cm . Distal abdominal aorta peak systolic velocity is 97.2 cm/sec . Normal renal veins bilat. VL/Renal Artery Duplex Ultrasound Interpretation Summary Dimensions of the intra-abdominal aorta appear normal, without evidence of aneurysmal dilatation. Renal artery velocities are bilaterally normal. Acceleration times are normal bilaterally. There is no evidence of hemodynamically significant renal artery stenosis on either side. Renovascular resistance appears to be bilaterally normal . The right cortical dimension is increased. The left cortical dimension is increased. Kidneys appear normal in size bilaterally. _ Ordering Physician: Carolin Feldman Performed By: Giuseppe Rojas RVHung 03/26/222133 Date Frankie Burgess MD CC: Dr. Carolin Feldman DO Date Dictated: 03/25/22900 Date Transcribed: 03/26/222133 Cage Tender: Alfonso Feldman DO Work Phone: Start: 01-25-2022 End: 01-25-2022 Thyroid Comments: See Note; NOTES: [facility] Imaging Services [address] [place] [address] Thyroid MR#: [id number] Acct: [id number] Name: BRYAN BRADLEY Rep #: [id number] : 1965 M 57 From: Ernesto Alvarez MD PCP: Dr. Carolin Feldman DO Status: REG CLI Study: Thyroid Date of Exam: 01/25/22 Exam# [id number] Ordering Dr: Carolin Feldman DO EXAM: US SOFT TISSUES HEAD AND NECK, THYROID CLINICAL INDICATION: THYROID NODULE TECHNIQUE: Greyscale and color doppler imaging was performed of the thyroid gland. This report was created using [employer]wa[employer] report generation technology. COMPARISON: None. FINDINGS: The right thyroid lobe measures 5.4 x 2.4 x 1.6 cm while left lower lobe measures 4.8 x 1.7 x 1.5 cm. The isthmus measures 3 mm. No nodules are seen on the left side. On the right side, there is a 3 mm nodule which is cystic and likely benign. US/Thyroid IMPRESSION: Likely benign 3 mm cystic nodule involving the right thyroid lobe. No other significant abnormalities. Electronically Signed: Ernesto Alvarez MD at 16:52 EDT , CC: Dr. Carolin Feldman DO Cage Tender: Signed Carolin Feldman DO Work Phone: Start: 06-04-2019 End: 06-04-2019 Screening colonoscopy Kyra Blanco CM A Plan of Treatment Date Care Activity Detail Author Start: 06-23-2023 Procedure Education Eprescribed prescriptions (G8553) [facility] Work Phone: Start: 06-07-2023 Procedure Education Eprescribed prescriptions (G8553) [facility] Work Phone: Start: 06-07-2023 Lipid panel LIPID PANEL (40004) [facility]; [facility] Work Phone: Start: 06-07-2023 Hemoglobin glycosylated a1c HGB A1C (62626) [facility]; [facility] Work Phone: Start: 06-07-2023 Blood count complete auto&auto difrntl wbc CBC W/AUTO DIFF WBC (68057) [facility]; [facility] Work Phone: Start: 06-07-2023 Comprehensive metabolic panel METABOLIC PANEL, COMPREHENSIVE (39134) [facility]; [facility] Work Phone: Start: 07-22-2022 Procedure Education Eprescribed prescriptions (G8553) [facility]; [facility] Work Phone: Start: 07-22-2022 Urnls dip stick/tablet reagent auto microscopy URINALYSIS, W/ MICRO (72490) [facility]; [facility] Work Phone: Start: 07-22-2022 Blood count complete auto&auto difrntl wbc CBC with auto diff (51452) [facility]; [facility] Work Phone: Start: 07-22-2022 Lipid panel LIPID PANEL (86822) [facility]; [facility] Work Phone: Start: 07-22-2022 Comprehensive metabolic panel METABOLIC PANEL, COMPREHENSIVE (99089) [facility]; [facility] Work Phone: Start: 07-22-2022 Hemoglobin glycosylated a1c HGB A1C (37870) [facility]; [facility] Work Phone: Start: 07-22-2022 25 hydroxy includes fractions if performed Vitamin D Hydroxy (94572) [facility]; [facility] Work Phone: Start: 07-22-2022 Assay of prostate specific antigen total PSA (PROSTATE SPECIFIC ANTIGEN) (V76.44) [facility]; [facility] Work Phone: Start: 01-18-2022 Procedure Education Eprescribed prescriptions (G8553) [facility]; [facility] Work Phone: Start: 01-18-2022 25 hydroxy includes fractions if performed Vitamin D Hydroxy (44691) [facility]; [facility] Work Phone: Start: 01-18-2022 Urine albumin quantitative MICROALBUMIN: CREATININE RATIO (42559) AND (89449) [facility]; [facility] Work Phone: Start: 01-18-2022 Hemoglobin glycosylated a1c HGB A1C (17135) [facility]; [facility] Work Phone: Start: 01-18-2022 Lipid panel LIPID PANEL (28065) [facility]; [facility] Work Phone: Start: 01-18-2022 Comprehensive metabolic panel METABOLIC PANEL, COMPREHENSIVE (79425) [facility]; [facility] Work Phone: Start: 09-27-2021 Procedure Education Eprescribed prescriptions (G8553) [facility]; [facility] Work Phone: Start: 09-27-2021 Metanephrines METANEPHRINES - URINE (48041) [facility]; [facility] Work Phone: Start: 09-27-2021 Catecholamines total urine CATECHOLAMINES TOTAL, URINE (64462) [facility]; [facility] Work Phone: Start: 09-27-2021 Assay of vanillylmandelic acid urine URINE VMA (90031) [facility]; [facility] Work Phone: [facility] Work Phone: [facility] Work Phone: [facility] Work Phone: [facility] Work Phone: [facility] Work Phone: [facility] Work Phone: [facility]; [facility] Work Phone: Immunizations Immunization Date Immunization Notes Care Provider Gisela brown 04-29-2021 [employer]-[place] [employer] (AD26 .5 ML) Carolin Fast DO Work Phone: [facility]; [facility] Work Phone: Payers Date Payer Category Payer Unknown [id number] 1965 Unknown [id number] 1965 Unknown [id number] Unknown Kiara AVITIA/BS Unknown [id number] Social History Date Type Detail Facility Alcohol Use Alcohol Use [facility] Work Phone: Clinical Notes Note Date & Type Note Facility [facility]; [facility] Work Phone: Instructions* Name Dates Details Patient Instructions Indication:HTN (hypertension) Start:27-Sep-2021 Instruction Type:Provider Instructions for Treatment How to Access Health Informa tion Online using Patient Portal and [employer]rd [employer] Apps Indication:HTN (hypertension) Start:27-Sep-2021 Instruction Type:Patient Education [facility]; [facility] Work Phone: Instructions* Name Dates Details Patient Instructions Indication:Nonsmoker Start:18-Jan-2022 Instruction Type:Provider Instructions for Treatment How to Access Health Informa tion Online using Patient Portal and [employer] Apps Indication:Nonsmoker Start:18-Jan-2022 Instruction Type:Patient Education Patient Instructions Indication:HTN (hypertension) Start:27-Sep-2021 Instruction Type:Provider Instructions for Treatment How to Access Health Informa tion Online using Patient Portal and [employer] Apps Indication:HTN (hypertension) Start:27-Sep-2021 Instruction Type:Patient Education [facility]; [facility] Work Phone: Instructions* Name Dates Details Patient Instructions Indication:Nonsmoker Start:22-Jul-2022 Instruction Type:Provider Instructions for Treatment How to Access Health Informa tion Online using Patient Portal and [employer] Apps Indication:Nonsmoker Start:22-Jul-2022 Instruction Type:Patient Education Patient Instructions Indication:Nonsmoker Start:18-Jan-2022 Instruction Type:Provider Instructions for Treatment How to Access Health Informa tion Online using Patient Portal and [employer] Apps Indication:Nonsmoker Start:18-Jan-2022 Instruction Type:Patient Education Patient Instructions Indication:HTN (hypertension) Start:27-Sep-2021 Instruction Type:Provider Instructions for Treatment How to Access Health Informa tion Online using Patient Portal and [employer]rd [employer] Apps Indication:HTN (hypertension) Start:27-Sep-2021 Instruction Type:Patient Education [facility]; [facility] Work Phone: instructions* Name Dates Details Patient Instructions Indication:Nonsmoker Start:22-Jul-2022 Instruction Type:Provider Instructions for Treatment How to Access Health Informa tion Online using Patient Portal and [employer]rd [employer] Apps Indication:Nonsmoker Start:22-Jul-2022 Instruction Type:Patient Education Patient Instructions Indication:Nonsmoker Start:18-Jan-2022 Instruction Type:Provider Instructions for Treatment How to Access Health Informa tion Online using Patient Portal and [employer]rd [employer] Apps Indication:Nonsmoker Start:18-Jan-2022 Instruction Type:Patient Education Patient Instructions Indication:HTN (hypertension) Start:27-Sep-2021 Instruction Type:Provider Instructions for Treatment How to Access Health Informa tion Online using Patient Portal and [employer]rd [employer] Apps Indication:HTN (hypertension) Start:27-Sep-2021 Instruction Type:Patient Education [facility]; [facility] Work Phone: instructions* Name Dates Details Patient Instructions Indication:Nonsmoker Start:22-Jul-2022 Instruction Type:Provider Instructions for Treatment How to Access Health Informa tion Online using Patient Portal and [employer]rd [employer] Apps Indication:Nonsmoker Start:22-Jul-2022 Instruction Type:Patient Education Patient Instructions Indication:Nonsmoker Start:18-Jan-2022 Instruction Type:Provider Instructions for Treatment How to Access Health Informa tion Online using Patient Portal and [employer]rd [employer] Apps Indication:Nonsmoker Start:18-Jan-2022 Instruction Type:Patient Education Patient Instructions Indication:HTN (hypertension) Start:27-Sep-2021 Instruction Type:Provider Instructions for Treatment How to Access Health Informa tion Online using Patient Portal and [employer]rd [employer] Apps Indication:HTN (hypertension) Start:27-Sep-2021 Instruction Type:Patient Education [facility]; [facility] Work Phone: instructions* Name Dates Details Patient Instructions Indication:HTN (hypertension) Start:07-Jun-2023 Instruction Type:Provider Instructions for Treatment How to Access Health Informa tion Online using Patient Portal and [employer]rd [employer] Apps Indication:HTN (hypertension) Start:07-Jun-2023 Instruction Type:Patient Education Patient Instructions Indication:Nonsmoker Start:22-Jul-2022 Instruction Type:Provider Instructions for Treatment How to Access Health Informa tion Online using Patient Portal and [employer]rd [employer] Apps Indication:Nonsmoker Start:22-Jul-2022 Instruction Type:Patient Education Patient Instructions Indication:Nonsmoker Start:18-Jan-2022 Instruction Type:Provider Instructions for Treatment How to Access Health Informa tion Online using Patient Portal and [employer]rd [employer] Apps Indication:Nonsmoker Start:18-Jan-2022 Instruction Type:Patient Education Patient Instructions Indication:HTN (hypertension) Start:27-Sep-2021 Instruction Type:Provider Instructions for Treatment How to Access Health Informa tion Online using Patient Portal and [employer]rd [employer] Apps Indication:HTN (hypertension) Start:27-Sep-2021 Instruction Type:Patient Education [facility]; [facility] Work Phone: instructions* Name Dates Details Patient Instructions Indication:HTN (hypertension) Start:07-Jun-2023 Instruction Type:Provider Instructions for Treatment How to Access Health Informa tion Online using Patient Portal and [employer]rd [employer] Apps Indication:HTN (hypertension) Start:07-Jun-2023 Instruction Type:Patient Education Patient Instructions Indication:Nonsmoker Start:22-Jul-2022 Instruction Type:Provider Instructions for Treatment How to Access Health Informa tion Online using Patient Portal and [employer]rd [employer] Apps Indication:Nonsmoker Start:22-Jul-2022 Instruction Type:Patient Education Patient Instructions Indication:Nonsmoker Start:18-Jan-2022 Instruction Type:Provider Instructions for Treatment How to Access Health Informa tion Online using Patient Portal and [employer]rd [employer] Apps Indication:Nonsmoker Start:18-Jan-2022 Instruction Type:Patient Education Patient Instructions Indication:HTN (hypertension) Start:27-Sep-2021 Instruction Type:Provider Instructions for Treatment How to Access Health Informa tion Online using Patient Portal and [employer]rd [employer] Apps Indication:HTN (hypertension) Start:27-Sep-2021 Instruction Type:Patient Education [facility]; [facility] Work Phone: instructions* Name Dates Details Patient Instructions Indication:HTN (hypertension) Start:07-Jun-2023 Instruction Type:Provider Instructions for Treatment How to Access Health Informa tion Online using Patient Portal and [employer] Apps Indication:HTN (hypertension) Start:07-Jun-2023 Instruction Type:Patient Education Patient Instructions Indication:Nonsmoker Start:22-Jul-2022 Instruction Type:Provider Instructions for Treatment How to Access Health Informa tion Online using Patient Portal and [employer]rd [employer] Apps Indication:Nonsmoker Start:22-Jul-2022 Instruction Type:Patient Education Patient Instructions Indication:Nonsmoker Start:18-Jan-2022 Instruction Type:Provider Instructions for Treatment How to Access Health Informa tion Online using Patient Portal and [employer] Apps Indication:Nonsmoker Start:18-Jan-2022 Instruction Type:Patient Education Patient Instructions Indication:HTN (hypertension) Start:27-Sep-2021 Instruction Type:Provider Instructions for Treatment How to Access Health Informa tion Online using Patient Portal and [employer] Apps Indication:HTN (hypertension) Start:27-Sep-2021 Instruction Type:Patient Education [facility]; [facility] Work Phone: instructions* Name Dates Details Patient Instructions Indication:HTN (hypertension) Start:07-Jun-2023 Instruction Type:Provider Instructions for Treatment How to Access Health Informa tion Online using Patient Portal and [employer] Apps Indication:HTN (hypertension) Start:07-Jun-2023 Instruction Type:Patient Education Patient Instructions Indication:Nonsmoker Start:22-Jul-2022 Instruction Type:Provider Instructions for Treatment How to Access Health Informa tion Online using Patient Portal and [employer] Apps Indication:Nonsmoker Start:22-Jul-2022 Instruction Type:Patient Education Patient Instructions Indication:Nonsmoker Start:18-Jan-2022 Instruction Type:Provider Instructions for Treatment How to Access Health Informa tion Online using Patient Portal and [employer]rd [employer] Apps Indication:Nonsmoker Start:18-Jan-2022 Instruction Type:Patient Education Patient Instructions Indication:HTN (hypertension) Start:27-Sep-2021 Instruction Type:Provider Instructions for Treatment How to Access Health Informa tion Online using Patient Portal and [employer] Apps Indication:HTN (hypertension) Start:27-Sep-2021 Instruction Type:Patient Education [facility]; [facility] Work Phone: instructions* Name Dates Details Patient Instructions Indication:Acute bronchitis Start:23-Jun-2023 Instruction Type:Provider Instructions for Treatment How to Access Health Informa tion Online using Patient Portal and [employer]rd [employer] Apps Indication:Acute bronchitis Start:23-Jun-2023 Instruction Type:Patient Education Patient Instructions Indication:HTN (hypertension) Start:07-Jun-2023 Instruction Type:Provider Instructions for Treatment How to Access Health Informa tion Online using Patient Portal and [employer] Apps Indication:HTN (hypertension) Start:07-Jun-2023 Instruction Type:Patient Education Patient Instructions Indication:Nonsmoker Start:22-Jul-2022 Instruction Type:Provider Instructions for Treatment How to Access Health Informa tion Online using Patient Portal and [employer] Apps Indication:Nonsmoker Start:22-Jul-2022 Instruction Type:Patient Education Patient Instructions Indication:Nonsmoker Start:18-Jan-2022 Instruction Type:Provider Instructions for Treatment How to Access Health Informa tion Online using Patient Portal and [employer] Apps Indication:Nonsmoker Start:18-Jan-2022 Instruction Type:Patient Education Patient Instructions Indication:HTN (hypertension) Start:27-Sep-2021 Instruction Type:Provider Instructions for Treatment How to Access Health Informa tion Online using Patient Portal and [employer] Apps Indication:HTN (hypertension) Start:27-Sep-2021 Instruction Type:Patient Education [facility]; [facility] Work Phone: Family History Unknown Family Member Name Dates Details Brother 1 Status:Active Brother 2 Comments:htn Status:Active Father Comments: jean carlos 72- t hink ruptured aoartic aneursym- and had quad bypass Status:Active Mother Comments:living with htn had in age 50 -migraines and massive stroke - didnt treat bp - living in her 80s- Status:Active Sister 1 Status:Active Unknown Family Member Name Dates Details Brother 1 Status:Active Brother 2 Comments:htn Status:Active Father Comments: jean carlos 72- t hink ruptured aoartic aneursym- and had quad bypass Status:Active Mother Comments:living with htn had in age 50 -migraines and massive stroke - didnt treat bp - living in her 80s- Status:Active Sister 1 Status:Active Unknown Family Member Name Dates Details Brother 1 Status:Active Brother 2 Comments:htn Status:Active Father Comments: jean carlos 72- t hink ruptured aoartic aneursym- and had quad bypass Status:Active Mother Comments:living with htn had in age 50 -migraines and massive stroke - didnt treat bp - living in her 80s- Status:Active Sister 1 Status:Active Unknown Family Member Name Dates Details Brother 1 Status:Active Brother 2 Comments:htn Status:Active Father Comments: jean carlos 72- t hink ruptured aoartic aneursym- and had quad bypass Status:Active Mother Comments:living with htn had in age 50 -migraines and massive stroke - didnt treat bp - living in her 80s- Status:Active Sister 1 Status:Active Unknown Family Member Name Dates Details Brother 1 Status:Active Brother 2 Comments:htn Status:Active Father Comments: jean carlos 72- t hink ruptured aoartic aneursym- and had quad bypass Status:Active Mother Comments:living with htn had in age 50 -migraines and massive stroke - didnt treat bp - living in her 80s- Status:Active Sister 1 Status:Active Unknown Family Member Name Dates Details Brother 1 Status:Active Brother 2 Comments:htn Status:Active Father Comments: jean carlos 72- t hink ruptured aoartic aneursym- and had quad bypass Status:Active Mother Comments:living with htn had in age 50 -migraines and massive stroke - didnt treat bp - living in her 80s- Status:Active Sister 1 Status:Active Unknown Family Member Name Dates Details Brother 1 Status:Active Brother 2 Comments:htn Status:Active Father Comments: jean carlos 72- t hink ruptured aoartic aneursym- and had quad bypass Status:Active Mother Comments:living with htn had in age 50 -migraines and massive stroke - didnt treat bp - living in her 80s- Status:Active Sister 1 Status:Active Unknown Family Member Name Dates Details Brother 1 Status:Active Brother 2 Comments:htn Status:Active Father Comments: jean carlos 72- t hink ruptured aoartic aneursym- and had quad bypass Status:Active Mother Comments:living with htn had in age 50 -migraines and massive stroke - didnt treat bp - living in her 80s- Status:Active Sister 1 Status:Active Unknown Family Member Name Dates Details Brother 1 Status:Active Brother 2 Comments:htn Status:Active Father Comments: jean carlos 72- t hink ruptured aoartic aneursym- and had quad bypass Status:Active Mother Comments:living with htn had in age 50 -migraines and massive stroke - didnt treat bp - living in her 80s- Status:Active Sister 1 Status:Active Unknown Family Member Name Dates Details Brother 1 Status:Active Brother 2 Comments:htn Status:Active Father Comments: jean carlos 72- t hink ruptured aoartic aneursym- and had quad bypass Status:Active Mother Comments:living with htn had in age 50 -migraines and massive stroke - didnt treat bp - living in her 80s- Status:Active Sister 1 Status:Active Unknown Family Member Name Dates Details Brother 1 Status:Active Brother 2 Comments:htn Status:Active Father Comments: jean carlos 72- t hink ruptured aoartic aneursym- and had quad bypass Status:Active Mother Comments:living with htn had in age 50 -migraines and massive stroke - didnt treat bp - living in her 80s- Status:Active Sister 1 Status:Active Unknown Family Member Name Dates Details Brother 1 Status:Active Brother 2 Comments:htn Status:Active Father Comments: jean carlos 72- t hink ruptured aoartic aneursym- and had quad bypass Status:Active Mother Comments:living with htn had in age 50 -migraines and massive stroke - didnt treat bp - living in her 80s- Status:Active Sister 1 Status:Active Summary Purpose Advance Directives No Advanced Directives Records FoundNo Advanced Directives Records Found Additional Source Comments (unrecognized sect ion and content) No Status Records FoundNo Status Records Found INFORMATION SOURCE (unrecogn ized section and content) DATE CREATED AUTHOR AUTHOR'S ORGANIZ ATION 06/15/2023 [facility] FOR RECORDS PERTAINING TO PATIENTS WHO ARE OR HAVE BEEN ENROLLED IN A CHEMICAL DEPENDENCY/SUBSTANCEABUSE PROGRAM, SOME INFORMATION MAY BE OMITTED. This clinical summary was aggregated from multiple sources. Caution should be exercised in using it in the provision of clinical care. This summary normalizes information from multiple sources, and as a consequence, information in this document may materially change the coding, format and clinical context of patient data. In addition, data may be omitted in some cases. CLINICAL DECISIONS SHOULD BE BASED ON THE PRIMARY CLINICAL RECORDS. [facility]. provides no warranty or guarantee of the accuracy or completeness of information in this document.
== END | disposition home or self-care (01) ==
LOC: SL 11:29
PROVIDERS: PCP Internal Medicine; Visit Provider Nurse Practitioner Acute Care
DX: G47.33 Obstructive sleep apnea (adult) (pediatric) (principal)

== ENCOUNTER → 2023-12-22 | Outpatient (CLI) | payer BC, SELFPAY ==
--- OUTSIDE RECORDS SUMMARY | 2023-12-22 08:26 | XMS RPT_ITS | CCD ---
Author Name Unknown Address [address] [place] [address] Organization [facility] Care Team Providers Care [employer] Supervisor Name Role Phone Fast DO, Carolin A Unavailable Kyra Blanco CMA Unavailable Unavailable Fast DO, Carolin Shirley Unavailable Anibal Núñez LPN Unavailable Unavailable Unavailable Unavailable Fast Carolin BAHENA Attending Unavailable Carolin Feldman DO Referring Unavailable Carolin Feldman DO Consulting Unavailable [...] 06-23-2023 10:25-0400 Body height 178.44 cm Kyra [employer]hemian [employer] [facility] Comprehensiv e Internal Medicine; [facility] Work Phone: 06-23-2023 10:25-0400 Body mass index (BMI) [Ratio] 26.85 kg/m2 [employer] [facility]; [facility] Work Phone: 06-23-2023 10:25-0400 Body surface area Derived from formula 2.04 m2 Kyra EdwardselianeBohemian [employer] [facility]; [facility] Work Phone: 06-23-2023 10:25-0400 Body temperature 97.1 [degF] [employer] [facility] Comprehensi ve Internal Medicine; [facility] Work Phone: Encounters Encounter Date Encounter Type Care Provider Facility Start: 06-23-2023 End: 06-23-2023 Office outpatient visit 10 minutes Carolin Fast DO Work Phone: [facility] Start: 06-12-[address] Carolin Mayorga ty:[id number] Start: 06-07-2023 End: 06-09-2023 Patient encounter [...] Phone Encounter Carolin Fast DO Work Phone: [facility] Internal Medicine Start: 01-18-2022 End: 01-18-2022 Office outpatient visit 25 minutes Carolin Fast DO Work Phone: [facility] Internal Medicine Start: 09-27-2021 End: 09-28-2021 Office outpatient visit 25 minutes Carolin Fast DO Work Phone: [facility] Internal Medicine Start: 09-27-2021 End: 09-28-2021 Patient encounter status Carolin A Fast DO Work Phone: [facility]; [facility] Work Phone: [facility] Work Phone: Patient encounter status [facility]; [facility] Work Phone: Patient encounter status [facility]; [facility] Work Phone: Patient encounter status [facility]; [facility] Work Phone: Procedures Date Procedure Procedure Detail Performing Clinician Start: 06-14-2023 End: 06-15-2023 Kidney and Bladder Procedure Note: See Note; NOTES: [facility] Imaging Services [address] [place] [address] Kidney and Bladder MR#: [id number] Acct: [id number] Name: BRYAN BRADLEY Rep #: [id number] : 1965 M 58 From: Homer vyas MD PCP: Dr. Carolin Feldman DO Status: REG CLI Study: Kidney and Bladder Date of Exam: 06/14/23 Exam# [id number] Ordering Dr: Carolin Feldman DO STUDY: RENAL [...] EDT , CC: Dr. Carolin Feldman DO Resort Host: Signed Carolin Feldman DO Work Phone: Start: 12-22-2022 End: 12-22-2022 Office Visit Report Procedure Note: See Note; NOTES: [facility] [address] [place] [address] OFFICE VISIT Date of Service: 12/22/22 MR#: [id number] Acct: [id number] Patient: BRYAN BRADLEY Rep #: [id number] : 1965 Provider: Dr. Harsh Maher MD Age/Sex: 57/M Location: [facility] Status: Signed Intake Vital Signs 12/22/22 14:19 12/22/22 14:19 BP 150/64 H 130/80 H Blood Pressure Location Lt brachial Lt brachial Position Sitting Sitting Respiration 20 H 20 H Pulse 88 80 Pulse Source Auscultation Auscultation Intake Visit Reasons: High BP, h/a, trip on Monday L.L. Chief Complaint: elevated BP Bell Attendant Required: No Is patient in pain?: No [...] Both were L arm sitting. Nicki Pollack CHILD CARE GIVER notified and asked pt to resume Amlodipine 2.5 but take it BID with current meds. He is to monitor BP. He is to call back when he returns from trip and have 24 hour ambulatory BP monitor applied. 12/22/22 1445 <Electronically signed by Harsh Maher MD> Date Harsh Maher MD Cosigner Signature: Date (if applicable) CC: TOBY Pollack; Arianna Garciaa Fast DO Work Phone: Start: 09-19-2022 End: 09-19-2022 Echo Complete Procedure Note: See Note; NOTES: [facility] [address] [place] [address] Echo Complete 09/19/22 1414 MR#: [id number] Acct: [id number] Name: BRYAN BRADLEY Rep #: [id number] : 1965 57 From: Harsh Maher MD Attending Dr: Dr. Harsh Maher MD Status: [facility] Ordering Dr: Harsh Maher MD Date: 09/19/22 Location: [facility] Sex: M C Admitted: Procedure This [...] CC: Dr. Harsh Maher MD; Dr. Carolin Fast, DO Date Dictated: 09/19/22 1414 Date Transcribed: 09/19/22 1542 Resort Host: Signed Carolin eFldman DO Work Phone: Start: 09-05-2022 End: 09-05-2022 Cardiology Visit Report Procedure Note: See Note; NOTES: [facility] [address] [place] [address] OFFICE VISIT Date of Service: 09/05/22 MR#: [id number] Acct: [id number] Name: BRYAN BRADLEY Rep #: [id number] : 1965 Provider: Dr. Harsh Maher MD Age/Sex: 57/M Location[facility] Status: Signed HPI HPI History of Present [...] hypertension Plan Details Follow Up: 1 Year (twister doffer) Coding Level of Care Code Off vis,est,level 4 Diagnoses Essential (primary) hypertension I10 Coding Level of Care Code Off vis,est,level 4 Diagnoses Essential (primary) hypertension I10 09/05/22 1632 <Electronically signed by Harsh Maher MD> Date Harsh Maher MD Cosigner Signature: Date (if applicable) CC: DO Carolin Colon DO Work Phone: Start: 03-25-2022 End: 03-26-2022 Renal Artery Duplex Ultrasound Procedure Note: See Note; NOTES: [facility] [address] [place] [address] Renal Artery Duplex Ultrasound 03/25/22 0901 MR#: [id number] Acct: [id number] Name: BRYAN BRADLEY Rep #: [id number] : 1965 57 From: Frankie Burgess MD Attending Dr: Dr. Carolin Feldman DO Status: REG CL I Ordering Dr: Carolin Feldman DO Date: 03/25/22 Location: [facility] Sex: M C Admitted: Reason For Study: [...] Physician: Carolin Feldman Performed By: Giuseppe Rojas RVT 03/26/222133 Date Frankie Burgess MD CC: Dr. Carolin Feldman DO Date Dictated: 03/25/22900 Date Transcribed: 03/26/222133 Resort Host: Alfonso Feldman DO Work Phone: Start: 01-25-2022 End: 01-25-2022 Thyroid Comments: See Note; NOTES: [facility] Imaging Services [address] [place] [address] Thyroid MR#: [id number] Acct: [id number] Name: BRYAN BRADLEY Rep #: [id number] : 1965 M 57 From: Ernesto Alvarez MD PCP: Dr. Carolin Feldman DO Status: REG CLI Study: Thyroid Date of Exam: 01/25/22 Exam# [id number] Ordering Dr: Carolin Feldman DO EXAM: US SOFT TISSUES HEAD AND NECK, THYROID CLINICAL INDICATION: THYROID NODULE TECHNIQUE: Greyscale and color doppler imaging was performed of the thyroid gland. This report was created using [employer] report generation technology. COMPARISON: None. FINDINGS: The [...] EDT , CC: Dr. Carolin Feldman DO Resort Host: Signed Carolin Feldman DO Work Phone: Start: 06-04-2019 End: 06-04-2019 Screening colonoscopy Kyra Blanco CM A Plan of Treatment Date Care Activity Detail Author Start: 06-23-2023 Procedure Education Eprescribed prescriptions (G8553) [facility]; [facility] Work Phone: Start: 06-07-2023 Procedure Education Eprescribed prescriptions (G8553) [facility]; [facility] Work Phone: Start: 06-07-2023 Lipid panel LIPID PANEL (91343) [facility]; [facility] Work Phone: Start: 06-07-2023 Hemoglobin glycosylated a1c HGB A1C (93561) [facility]; [facility] Work Phone: Start: 06-07-2023 Blood count complete auto&auto difrntl wbc CBC W/AUTO DIFF WBC (18977) [facility]; [facility] Work Phone: Start: 06-07-2023 Comprehensive metabolic panel METABOLIC PANEL, COMPREHENSIVE (75293) [facility]; [facility] Work Phone: Start: 07-22-2022 Procedure Education Eprescribed prescriptions (G8553) [facility]; [facility] Work Phone: Start: 07-22-2022 Urnls dip stick/tablet reagent auto microscopy URINALYSIS, W/ MICRO (59626) [facility]; [facility] Work Phone: Start: 07-22-2022 Blood count complete auto&auto difrntl wbc CBC with auto diff (04842) [facility]; [facility] Work Phone: Start: 07-22-2022 Lipid panel LIPID PANEL (63100) [facility]; [facility] Work Phone: Start: 07-22-2022 Comprehensive metabolic panel METABOLIC PANEL, COMPREHENSIVE (14863) [facility]; [facility] Work Phone: Start: 07-22-2022 Hemoglobin glycosylated a1c HGB A1C (98214) [facility]; [facility] Work Phone: Start: 07-22-2022 25 hydroxy includes fractions if performed Vitamin D Hydroxy (44164) [facility]; [facility] Work Phone: Start: 07-22-2022 Assay of prostate specific antigen total PSA (PROSTATE SPECIFIC ANTIGEN) (V76.44) [facility]; [facility] Work Phone: Start: 01-18-2022 Procedure Education Eprescribed prescriptions (G8553) [facility]; [facility] Work Phone: Start: 01-18-2022 25 hydroxy includes fractions if performed Vitamin D Hydroxy (55281) [facility]; [facility] Work Phone: Start: 01-18-2022 Urine albumin quantitative MICROALBUMIN: CREATININE RATIO (57630) AND (91322) [facility]; [facility] Work Phone: Start: 01-18-2022 Hemoglobin glycosylated a1c HGB A1C (69650) [facility]; [facility] Work Phone: Start: 01-18-2022 Lipid panel LIPID PANEL (96890) [facility]; [facility] Work Phone: Start: 01-18-2022 Comprehensive metabolic panel METABOLIC PANEL, COMPREHENSIVE (87836) [facility]; [facility] Work Phone: Start: 09-27-2021 Procedure Education Eprescribed prescriptions (G8553) [facility]; [facility] Work Phone: Start: 09-27-2021 Metanephrines METANEPHRINES - URINE (03546) [facility]; [facility] Work Phone: Start: 09-27-2021 Catecholamines total urine CATECHOLAMINES TOTAL, URINE (46559) [facility]; [facility] Work Phone: Start: 09-27-2021 Assay of vanillylmandelic acid urine URINE VMA (58484) [facility]; [facility] Work [...] Immunization Notes Care Provider Gisela brown 04-29-2021 [employer] (AD26 .5 ML) Carolin Feldman DO Work Phone: [facility]; [facility] Work Phone: Payers Date Payer Category Payer Unknown [id number] 1965 Unknown [id number] 1965 Unknown [id number] Unknown Kiara AVITIA/BS Unknown [id number] Social History Date Type Detail Facility Alcohol Use Alcohol Use [facility]; [facility] Work Phone: Clinical Notes Note Date & Type Note Facility [facility]; [facility] Work Phone: Instructions* Name Dates Details Patient Instructions Indication:HTN (hypertension) Start:27-Sep-2021 Instruction Type:Provider Instructions for Treatment How to Access Health Informa tion Online using Patient Portal and [employer] Apps Indication:HTN (hypertension) Start:27-Sep-2021 Instruction Type:Patient Education [facility]; [facility] Work Phone: Instructions* Name Dates Details Patient Instructions Indication:Nonsmoker Start:18-Jan-2022 Instruction Type:Provider Instructions for Treatment How to Access Health Informa tion Online using Patient Portal and My [employer] Apps Indication:Nonsmoker Start:18-Jan-2022 Instruction Type:Patient Education Patient Instructions Indication:HTN (hypertension) Start:27-Sep-2021 Instruction Type:Provider Instructions for Treatment How to Access Health Informa tion Online using Patient Portal and My [employer] Apps Indication:HTN (hypertension) Start:27-Sep-2021 Instruction Type:Patient Education [facility]; [facility] Work Phone: Instructions* Name Dates Details Patient Instructions Indication:Nonsmoker Start:22-Jul-2022 Instruction Type:Provider Instructions for Treatment How to Access Health Informa tion Online using Patient Portal and My [employer] Apps Indication:Nonsmoker Start:22-Jul-2022 Instruction Type:Patient Education Patient Instructions Indication:Nonsmoker Start:18-Jan-2022 Instruction Type:Provider Instructions for Treatment How to Access Health Informa tion Online using Patient Portal and My [employer] Apps Indication:Nonsmoker Start:18-Jan-2022 Instruction Type:Patient Education Patient Instructions Indication:HTN (hypertension) Start:27-Sep-2021 Instruction Type:Provider Instructions for Treatment How to Access Health Informa tion Online using Patient Portal and [employer] Apps Indication:HTN (hypertension) Start:27-Sep-2021 Instruction Type:Patient Education [facility]; [facility] Work Phone: instructions* Name Dates Details Patient Instructions Indication:Nonsmoker Start:22-Jul-2022 Instruction Type:Provider Instructions for Treatment How to Access Health Informa tion Online using Patient Portal and [employer] Apps Indication:Nonsmoker Start:22-Jul-2022 Instruction Type:Patient Education Patient Instructions Indication:Nonsmoker Start:18-Jan-2022 Instruction Type:Provider Instructions for Treatment How to Access Health Informa tion Online using Patient Portal and [employer] Apps Indication:Nonsmoker Start:18-Jan-2022 Instruction Type:Patient Education Patient Instructions Indication:HTN (hypertension) Start:27-Sep-2021 Instruction Type:Provider Instructions for Treatment How to Access Health Informa tion Online using Patient Portal and [employer] Apps Indication:HTN (hypertension) Start:27-Sep-2021 Instruction Type:Patient Education [facility]; [facility] Work Phone: instructions* Name Dates Details Patient Instructions Indication:Nonsmoker Start:22-Jul-2022 Instruction Type:Provider Instructions for Treatment How to Access Health Informa tion Online using Patient Portal and [employer] Apps Indication:Nonsmoker Start:22-Jul-2022 Instruction Type:Patient Education Patient Instructions Indication:Nonsmoker Start:18-Jan-2022 Instruction Type:Provider Instructions for Treatment How to Access Health Informa tion Online using Patient Portal and [employer] Apps Indication:Nonsmoker Start:18-Jan-2022 Instruction Type:Patient Education Patient Instructions Indication:HTN (hypertension) Start:27-Sep-2021 Instruction Type:Provider Instructions for Treatment How to Access Health Informa tion Online using Patient Portal and [employer] Apps Indication:HTN (hypertension) Start:27-Sep-2021 Instruction Type:Patient Education [facility]; [facility] Work Phone: instructions* Name Dates Details Patient Instructions Indication:HTN (hypertension) Start:07-Jun-2023 Instruction Type:Provider Instructions for Treatment How to Access Health Informa tion Online using Patient Portal and [employer] Apps Indication:HTN (hypertension) Start:07-Jun-2023 Instruction Type:Patient Education Patient Instructions Indication:Nonsmoker Start:22-Jul-2022 Instruction Type:Provider Instructions for Treatment How to Access Health Informa tion Online using Patient Portal and [employer] Apps Indication:Nonsmoker Start:22-Jul-2022 Instruction Type:Patient Education Patient Instructions Indication:Nonsmoker Start:18-Jan-2022 Instruction Type:Provider Instructions for Treatment How to Access Health Informa tion Online using Patient Portal and [employer] Apps Indication:Nonsmoker Start:18-Jan-2022 Instruction Type:Patient Education Patient Instructions Indication:HTN (hypertension) Start:27-Sep-2021 Instruction Type:Provider Instructions for Treatment How to Access Health Informa tion Online using Patient Portal and [employer] Apps Indication:HTN (hypertension) Start:27-Sep-2021 Instruction Type:Patient Education [facility]; [facility] Work Phone: instructions* Name Dates Details Patient Instructions Indication:HTN (hypertension) Start:07-Jun-2023 Instruction Type:Provider Instructions for Treatment How to Access Health Informa tion Online using Patient Portal and [employer] Apps Indication:HTN (hypertension) Start:07-Jun-2023 Instruction Type:Patient Education Patient Instructions Indication:Nonsmoker Start:22-Jul-2022 Instruction Type:Provider Instructions for Treatment How to Access Health Informa tion Online using Patient Portal and My [employer] Apps Indication:Nonsmoker Start:22-Jul-2022 Instruction Type:Patient Education Patient Instructions Indication:Nonsmoker Start:18-Jan-2022 Instruction Type:Provider Instructions for Treatment How to Access Health Informa tion Online using Patient Portal and [employer] Apps Indication:Nonsmoker Start:18-Jan-2022 Instruction Type:Patient Education Patient Instructions Indication:HTN (hypertension) Start:27-Sep-2021 Instruction Type:Provider Instructions for Treatment How to Access Health Informa tion Online using Patient Portal and [employer] Apps Indication:HTN (hypertension) Start:27-Sep-2021 Instruction Type:Patient Education [facility]; [facility] Work Phone: instructions* Name Dates Details Patient Instructions Indication:HTN (hypertension) Start:07-Jun-2023 Instruction Type:Provider Instructions for Treatment How to Access Health Informa tion Online using Patient Portal and [employer] Apps Indication:HTN (hypertension) Start:07-Jun-2023 Instruction Type:Patient Education Patient Instructions Indication:Nonsmoker Start:22-Jul-2022 Instruction Type:Provider Instructions for Treatment How to Access Health Informa tion Online using Patient Portal and [employer] Apps Indication:Nonsmoker Start:22-Jul-2022 Instruction Type:Patient Education Patient Instructions Indication:Nonsmoker Start:18-Jan-2022 Instruction Type:Provider Instructions for Treatment How to Access Health Informa tion Online using Patient Portal and My [employer] Apps Indication:Nonsmoker Start:18-Jan-2022 Instruction Type:Patient Education Patient Instructions Indication:HTN (hypertension) Start:27-Sep-2021 Instruction Type:Provider Instructions for Treatment How to Access Health Informa tion Online using Patient Portal and [employer] Apps Indication:HTN (hypertension) Start:27-Sep-2021 Instruction Type:Patient Education [facility]; [facility] Work Phone: instructions* Name Dates Details Patient Instructions Indication:HTN (hypertension) Start:07-Jun-2023 Instruction Type:Provider Instructions for Treatment How to Access Health Informa tion Online using Patient Portal and [employer] Apps Indication:HTN (hypertension) Start:07-Jun-2023 Instruction Type:Patient Education Patient Instructions Indication:Nonsmoker Start:22-Jul-2022 Instruction Type:Provider Instructions for Treatment How to Access Health Informa tion Online using Patient Portal and [employer] Apps Indication:Nonsmoker Start:22-Jul-2022 Instruction Type:Patient Education Patient Instructions Indication:Nonsmoker Start:18-Jan-2022 Instruction Type:Provider Instructions for Treatment How to Access Health Informa tion Online using Patient Portal and My [employer] Apps Indication:Nonsmoker Start:18-Jan-2022 Instruction Type:Patient Education Patient Instructions Indication:HTN (hypertension) Start:27-Sep-2021 Instruction Type:Provider Instructions for Treatment How to Access Health Informa tion Online using Patient Portal and My [employer] Apps Indication:HTN (hypertension) Start:27-Sep-2021 Instruction Type:Patient Education [facility]; [facility] Work Phone: instructions* Name Dates Details Patient Instructions Indication:Acute bronchitis Start:23-Jun-2023 Instruction Type:Provider Instructions for Treatment How to Access Health Informa tion Online using Patient Portal and [employer] Apps Indication:Acute bronchitis Start:23-Jun-2023 Instruction Type:Patient Education Patient Instructions Indication:HTN (hypertension) Start:07-Jun-2023 Instruction Type:Provider Instructions for Treatment How to Access Health Informa tion Online using Patient Portal and [employer] Apps Indication:HTN (hypertension) Start:07-Jun-2023 Instruction Type:Patient Education Patient Instructions Indication:Nonsmoker Start:22-Jul-2022 Instruction Type:Provider Instructions for Treatment How to Access Health Informa tion Online using Patient Portal and [employer] Apps Indication:Nonsmoker Start:22-Jul-2022 Instruction Type:Patient Education Patient Instructions Indication:Nonsmoker Start:18-Jan-2022 Instruction Type:Provider Instructions for Treatment How to Access Health Informa tion Online using Patient Portal and [employer] Apps Indication:Nonsmoker Start:18-Jan-2022 Instruction Type:Patient Education Patient Instructions Indication:HTN (hypertension) Start:27-Sep-2021 Instruction Type:Provider Instructions for Treatment How to Access Health Informa tion Online using Patient Portal and [employer] Apps Indication:HTN (hypertension) Start:27-Sep-2021 Instruction Type:Patient Education [...] DATE CREATED AUTHOR AUTHOR'S ORGANIZ ATION 06/15/2023 [facility] FOR RECORDS PERTAINING TO PATIENTS WHO ARE [...] BE BASED ON THE PRIMARY CLINICAL RECORDS. [facility] [employer] [facility]. provides no warranty or guarantee of the accuracy or completeness of information in this document.
[2023-12-22 10:13] LABS: Color, Urine Yellow (Yellow); Glucose, Dipstick Normal (Normal); Ketone-Dipstick 5 mg/dl (Negative); Leukocyte Esterase-Dipstick Negative /ul (Negative); Nitrite-Dipstick Negative (Negative); Occult Blood-Urine 25 /ul (Negative); Protein-Dipstick Negative (Negative); Urine Bilirubin Dipstick Negative (Negative); Urine Clarity Clear (Clear); Urine Urobilinogen Normal (Normal)
[2023-12-22 10:39] LABS: Protein:Creat Ratio 70 mg/g CRE (0-200)
[2023-12-22 10:56] LABS: Anion Gap 6 (5-15); BUN 22 mg/dL (7-18); BUN/Creat Ratio 22.8 RATIO (10-20); Calcium,Total 9.5 mg/dL (8.5-10.1); Chloride 107 mmol/L (98-107); Creatinine, Serum 0.96 mg/dL (0.70-1.30); EST Glomerular Filtration Rate 84 mL/min (>60); Est Glom Filt Rate - Afr Amer 102 mL/min (>60); Glucose 139 mg/dL (74-106); Potassium 3.8 mmol/L (3.5-5.1); Sodium Level 140 mmol/L (136-145)
[2023-12-29 01:24] LABS: Aldosterone, Serum 3.3 ng/dL (0.0-30.0); Renin, Plasma 7.673 ng/mL/hr (0.167-5.380)
== END | disposition home or self-care (01) ==
PROVIDERS: PCP Internal Medicine; Referring Provider Internal Medicine Nephrology; Visit Provider Internal Medicine Nephrology
DX: R80.9 Proteinuria, unspecified (principal); I10 Essential (primary) hypertension
CPT/HCPCS: 36415; 80048; 81002; 82088; 82570; 84156; 84244

== ENCOUNTER → 2024-05-20 | Outpatient (CLI) | payer BC, SELFPAY ==
[2024-05-20 10:14] LABS: Anion Gap 8 (5-15); BUN 20 mg/dL (7-18); BUN/Creat Ratio 18.9 RATIO (10-20); Calcium,Total 9.1 mg/dL (8.5-10.1); Chloride 106 mmol/L (98-107); Creatinine, Serum 1.06 mg/dL (0.70-1.30); EST Glomerular Filtration Rate 75 mL/min (>60); Est Glom Filt Rate - Afr Amer 91 mL/min (>60); Glucose 113 mg/dL (74-106); Potassium 3.9 mmol/L (3.5-5.1); Sodium Level 140 mmol/L (136-145)
[2024-05-20 10:25] LABS: Protein, Urine (Random) 12.2 mg/dL (<11.9); Protein:Creat Ratio 72 mg/g CRE (0-200)
== END | disposition home or self-care (01) ==
PROVIDERS: PCP Internal Medicine; Referring Provider Internal Medicine Nephrology; Visit Provider Internal Medicine Nephrology
DX: I10 Essential (primary) hypertension (principal); R80.9 Proteinuria, unspecified
CPT/HCPCS: 36415; 80048; 82570; 84156

== ENCOUNTER → 2024-07-27 | Outpatient (CLI) | payer BC, SELFPAY ==
--- NOTE | 2024-07-27 08:41 | CT_ITS ---
EXAM: CT CHEST WITHOUT INTRAVENOUS CONTRAST CLINICAL INDICATION: LUNG NODULE TECHNIQUE: Helically acquired images were obtained of the chest without intravenous contrast. This CT exam was performed using one or more of the following dose reduction techniques: automated exposure control, adjustment of the mA and/or kV according to patient size, and/or use of iterative reconstruction technique. COMPARISON: CT Chest dated 03/12/2010 FINDINGS: LUNGS AND PLEURAL SPACES: Nodular density along the left major fissure is stable and is consistent with intrapulmonary lymph node. No evidence of lung mass or suspicious pulmonary nodule. No pleural effusion or thickening. No pneumothorax. HEART: Mild coronary artery calcification. Normal heart size. MEDIASTINUM: Normal. No mediastinal or hilar adenopathy. Esophagus is unremarkable. No hiatal hernia. BONES/JOINTS: No suspicious lytic or blastic abnormality. VASCULATURE: See above. LYMPH NODES: Small calcified left hilar lymph nodes related to old granulomatous disease. LIVER: Heterogeneous liver density may be due to steatosis with regions of fat sparing. GALLBLADDER AND BILE DUCTS: Small calcified stones are present within the gallbladder. CT/Chest without Contrast IMPRESSION: 1. No evidence of a lung mass or suspicious pulmonary nodule. 2. Cholelithiasis. 3. Abnormal liver density which may represent steatosis with areas of fat sparing. Follow-up ultrasound of the liver or contrast enhanced CT or MRI would be of further value. Electronically Signed: Kwan Michael MD at 10:12 EDT ,
== END | disposition home or self-care (01) ==
PROVIDERS: PCP Internal Medicine; Referring Provider Internal Medicine; Visit Provider Internal Medicine
DX: R91.1 Solitary pulmonary nodule (principal)
CPT/HCPCS: 71250

== ENCOUNTER → 2024-09-24 | Outpatient (CLI) | payer BC, SELFPAY ==
--- NOTE | 2024-09-24 09:23 | US_ITS ---
STUDY: ABDOMINAL ULTRASOUND - RIGHT UPPER QUADRANT REASON FOR VISIT: Male, 59 years old liver ultrasound - abnormal CT of chest -- liver ultrasound - abnormal CT of chest TECHNIQUE: Ultrasound evaluation of the right upper quadrant was performed with real-time and static adams-scale imaging. TECHNICAL QUALITY: Adequate. COMPARISON: CT chest July 27, 2024 FINDINGS: Liver: The liver measures 18.2 cm. There is diffusely increased echogenicity of the liver. The bile ducts are within normal limits. There is hepatic color flow. The direction of portal flow is hepatopetal. There is no demonstrated mass lesion. Gallbladder: Normal distended gallbladder. The gallbladder wall measures 2.3 mm. There is a negative sonographic Holloway''s sign. There is no pericholecystic fluid. There are no gallstones. Common Bile Duct (C.B.D.): The common bile duct measures 3.9 mm. Pancreas: Normal size of the head, body and tail of the pancreas. There is normal echogenicity of the pancreas. There is no demonstrated pancreatic mass or cyst. Right Kidney: Normal size of the right kidney. The right kidney measures 11.8 x 4.9 x 6.9 cm. Normal renal cortex. The right cortex measures 1.4 cm. There is no demonstrated renal mass or cyst. There is no right hydronephrosis. US/Abdomen Limited IMPRESSION: Mildly enlarged fatty infiltrated liver. No other significant abnormality The questionable tiny gallstones or polyps noted on recent CAT scan not visualized at this time If concern for acute cholecystitis HIDA scan recommended Electronically Signed: Jules Shukla MD at 22:17 EST ,
== END | disposition home or self-care (01) ==
LOC: US 09:17
PROVIDERS: PCP Internal Medicine; Referring Provider Internal Medicine; Visit Provider Internal Medicine
DX: R93.89 Abnormal findings on diagnostic imaging of other specified body structures (principal)
CPT/HCPCS: 76705

== ENCOUNTER → 2024-12-04 | Outpatient (CLI) | payer BC, SELFPAY ==
--- NOTE | 2024-12-04 14:50 | ECHOD_ITS ---
Reason For Study: HTN Procedure This was a 2D Doppler, Color Flow transthoracic echocardiogram. Exam performed in department. Left Ventricle Normal LV size. Left ventricular systolic function is normal. The left ventricular ejection fraction is 60 %. No regional wall motion abnormalities noted. Right Ventricle Normal RV size. Normal systolic function. Atria Normal left atrium. Normal right atrium. Mitral Valve Normal mitral valve. Tricuspid Valve Normal tricuspid valve. Aortic Valve Trisinus/trileaflet aortic valve. Pulmonic Valve Normal pulmonic valve. Great Vessels Normal aortic root. The pulmonary artery is normal size. Normal inferior vena cava. Pericardium/Pleural No pericardial effusion. MMode/2D Measurements & Calculations LVIDd: 5.2 cm IVSd: 0.90 cm Ao root diam: 3.3 cm LVIDs: 3.4 cm LVPWd: 0.86 cm RVDd: 3.1 cm FS: 35.1 % _ LAV(MOD-bp): 51.2 ml LVAd ap4: 32.2 cm2 SV(MOD-sp4): 57.0 ml LAV(MOD-bp) Indexed: 25.0 ml/m2 LVLd ap4: 9.3 cm SI(MOD-sp4): 27.9 ml/m2 LAV(MOD-sp2): 55.9 ml EDV(MOD-sp4): 96.9 ml LAV(MOD-sp4): 43.0 ml EDV(sp4-el): 94.5 ml LVAs ap4: 18.9 cm2 LVLs ap4: 8.0 cm ESV(MOD-sp4): 39.9 ml ESV(sp4-el): 38.1 ml EF(MOD-sp4): 58.9 % EF(sp4-el): 59.7 % _ SV(sp4-el): 56.4 ml LA A4 area: 16.1 cm2 LA dimension(2D): 3.9 cm _ RA A4 area: 14.3 cm2 TAPSE: 2.1 cm Time Measurements MV dec time: 0.20 sec Doppler Measurements & Calculations MV E max brenden: 70.6 cm/sec Lat Peak E' Brenden: 12.6 cm/sec Med Peak E' Brenden: 8.8 cm/sec MV A max brenden: 66.5 cm/sec E/E' lat: 5.6 E/E' med: 8.0 MV E/A: 1.1 _ MV V2 max: 92.8 cm/sec MV P1/2t max brenden: 93.9 cm/sec Ao V2 max: 123.3 cm/sec MV max P.4 mmHg MV P1/2t: 76.4 msec Ao max P.1 mmHg MV V2 mean: 49.6 cm/sec Ao V2 mean: 83.1 cm/sec MV mean P.2 mmHg MV dec slope: 359.9 cm/sec2 Ao mean P.2 mmHg MV V2 VTI: 28.9 cm MVA(P1/2t): 2.9 cm2 Ao V2 VTI: 26.3 cm AV (velocity ratio): 0.89 _ LV V1 max: 104.3 cm/sec PA V2 max: 115.3 cm/sec LV V1 max P.4 mmHg LV V1 mean P.2 mmHg LV V1 mean: 69.3 cm/sec LV V1 VTI: 23.4 cm ECHO/Echo Complete Interpretation Summary Normal LV size. Left ventricular systolic function is normal. The left ventricular ejection fraction is 60 %. Structurally normal valves. Ordering Physician: Harsh Maher Referring Physician: Harsh Maher Performed By: Dickson Roblero RCS
== END | disposition home or self-care (01) ==
LOC: CVS 14:49
PROVIDERS: PCP Internal Medicine; Referring Provider Internal Medicine Cardiovascular Disease; Visit Provider Internal Medicine Cardiovascular Disease
DX: I10 Essential (primary) hypertension (principal)
CPT/HCPCS: 93306

== ENCOUNTER → 2025-10-20 | Outpatient (CLI) | payer BC, SELFPAY ==
[2025-10-20 10:10] LABS: Mucous, Urine 0 SEEN /hpf (<or=2+); Red Blood Cells-Urine 0 SEEN /hpf (0-5); Squamous Epithelial Cells - UA 0 SEEN /hpf (0-5)
[2025-10-20 12:01] LABS: Color, Urine Yellow (Yellow); Glucose, Dipstick Normal (Normal); Ketone-Dipstick Negative (Negative); Leukocyte Esterase-Dipstick Negative /ul (Negative); Nitrite-Dipstick Negative (Negative); Occult Blood-Urine 25 /ul (Negative); Protein-Dipstick 30 mg/dl (Negative); Specific Gravity, Urine 1.015 (1.002-1.030); Urine Bilirubin Dipstick Negative (Negative)
[2025-10-20 12:09] LABS: Hematocrit 42.3 % (40-54); Hemoglobin 14.5 g/dL (13.0-16.5); Immature Granulocytes Count 0.030 X10^3/uL (0.0-0.0); Mean Corp Hgb Conc 34.3 g/dL (32-36); Mean Corpuscular Volume 92.0 fL (80-94); Mean Platelet Vol. 10.3 fl (6.2-12.0); NRBC Flagged by Analyzer 0 % (0-5); Platelet Count 266 K/mm3 (150-450); RBC Distribution Width CV 12.7 % (11.6-14.6); RBC Distribution Width SD 42.2 fl (35.1-43.9); Red Blood Count 4.60 M/mm3 (4.6-6.2); White Blood Count 6.0 K/mm3 (4.4-11.0)
[2025-10-20 12:57] LABS: AST(SGOT) 25 U/L (<=37); Alanine Aminotransfer ALT/SGPT 46 U/L (<=46); Albumin, Serum 4.9 g/dL (3.4-4.8); Alkaline Phosphatase 73 U/L (40-129); Anion Gap 14 (5-15); BUN 15 mg/dL (4-19); BUN/Creat Ratio 13.8 RATIO (10-20); Calcium,Total 9.8 mg/dL (7.6-11.0); Carbon Dioxide 27.7 mmol/L (21.0-32.0); Chloride 102 mmol/L (98-108); Globulin 2.0 g/dL (2.2-4.2); Glucose 140 mg/dL (70-99); Potassium 4.1 mmol/L (3.3-5.1)
[2025-10-20 12:58] LABS: Creatinine, Urine (random) 187.00 mg/dL (39.00-259.00); Microalbumin,Random Urine 19.2 mg/L (<20 mg/L)
[2025-10-21 17:08] LABS: PSA, Total 0.5 ng/mL (0.0-4.0)
== END | disposition home or self-care (01) ==
LOC: LABSPEC 10:08
PROVIDERS: PCP Internal Medicine; Referring Provider Internal Medicine; Visit Provider Internal Medicine
DX: R31.29 Other microscopic hematuria (principal); R73.01 Impaired fasting glucose; Z12.5 Encounter for screening for malignant neoplasm of prostate
CPT/HCPCS: 80053; 81001; 82043; 82570; 84153; 85025